=== PATIENT | male | born 1960 | race Caucasian/White ===

== ENCOUNTER 2018-11-06 21:18 | Inpatient (IN) ==
[2018-11-06] MEDS ORDERED: IOPAMIDOL 100 ML BOTTLE IV ONE (21:19)
[2018-11-06] MEDS ORDERED: 0.9 % SODIUM CHLORIDE 2,000 ML IV ONE (21:50)
[2018-11-06] MEDS ORDERED: ONDANSETRON 4 MG/2 ML VIAL IV ONE (21:50)
[2018-11-06] MEDS ORDERED: HYDROmorphone 2 MG/ML VIAL IV PRN (21:50)
[2018-11-06] MEDS ORDERED: PANTOPRAZOLE 40 MG VIAL IV ONE (21:53)
[2018-11-06] MEDS ORDERED: PIPERACILLIN SODIUM/TAZOBACTAM 3.375 GM in DEXTROSE 5% IN WATER 50 ML IV SCH (22:00)
[2018-11-06] MEDS ORDERED: PANTOPRAZOLE 80 MG in 0.9 % SODIUM CHLORIDE 100 ML IV SCH (22:00)
[2018-11-06 23:09] LABS: Mean Cell Volume 72.9 fL (80.0-100.0); Mean Corpuscular HGB Conc 31.4 g/dL (31.0-36.0); Platelet Count 442 K/mcL (140-440); Red Cell Distribution Width 17.3 % (11.5-14.5)
[2018-11-06 23:29] LABS: ALT/SGPT 13 U/l (0-40); Albumin 3.8 gm/dL (3.2-5.2); Albumin/Globulin Ratio 1.3 (1.0-2.3); Alkaline Phosphatase 90 U/L (39-117); Amylase 94 U/L (28-100); Blood Urea Nitrogen 42 mg/dl (6-20); Lipase 33 U/L (7-60)
[2018-11-06 23:48] LABS: Anisocytosis 1+ (NONE SEEN); Hypochromasia 1+ (NONE SEEN); Lymphocytes % 6 % (15-49); Monocytes % (Manual) 6 % (1-12); Platelet Estimate INCREASED (NORMAL); RBC Morphology ABNORM (NORMAL); Segmented Neutrophils % 88 % (38-78)
--- NOTE | 2018-11-06 23:53 | Emergency Department Note ---
Dizziness HPI - General Chief Complaint: Dizziness Stated Complaint: dizziness and falls x 2 today Time Seen by Provider: 11/06/18 21:38 Source: patient, family Mode of arrival: wheelchair Limitations: no limitations - History of Present Illness HPI Narrative: 58-year-old male comes in for nausea vomiting and epigastric stomach pain. Has not been able to eat for 2 or 3 days now. He notes pain after eating with nausea and vomiting so he has limited his eating. Has been seen at [facility] for this problem before without significant resolution. He is also been to [place] and had upper endoscopy for which he said they have seen a mass. Currently not having trouble breathing nor fever. Somnolent. His is complaining he is sleeping all the time - Related Data Allergies Allergy/AdvReac Type Severity Reaction Status Date / Time No Known Drug Allergies Allergy Unverified 11/07/18 00:18 Review of Systems All systems ED: reviewed and negative except as stated. Past Medical History - Past Medical History Attestation: Yes: The following information was validated with the patient. Medical history: Reports: no medical history Surgical history ED: Reports: appendectomy, other (Ear surgery) - Social History smoking status: Former smoker (Recently quit) Alcohol use: Reports: None Physical Exam Cachectic male, somnolent. Normocephalic atraumatic. Conjunctive are clear sclerae nonicteric. No nasal discharge or congestion. Oropharynx is pink and moist. Poor dentition with multiple missing teeth. Neck is supple without lymphadenopathy thyromegaly. Heart is mildly tachycardic without murmur appreciated. Lungs are clear to auscultation bilaterally without wheezes rales rhonchi's or respiratory distress. Epigastric tenderness noted but otherwise flat stomach without distention guarding rebound or rigidity. No pedal edema. +2 radial pulse. He was much more alert after getting IV fluids Dilaudid Zofran and Protonix drip. He reports his pain significantly improved Limitations: no limitations Course Vital Signs Temperature 98.0 F 11/06/18 21:20 Pulse Rate 132 H 11/06/18 21:20 Respiratory Rate 16 11/06/18 21:20 Blood Pressure 71/55 11/06/18 21:20 Pulse Oximetry (%) 100 11/06/18 21:20 Temperature 98.0 F 11/06/18 21:20 Pulse Rate 132 H 11/06/18 21:20 Respiratory Rate 15 11/07/18 00:01 Blood Pressure 91/63 11/07/18 00:01 Pulse Oximetry (%) 100 11/06/18 21:46 Dizziness - Lab Data Lab results reviewed: Yes I reviewed the patient's lab results. Result diagrams: 11/06/18 22:15 11/06/18 22:15 Lab Results 11/06/18 11/06/18 11/06/18 Range/Units 22:15 22:15 22:15 WBC 15.9 H (4.5-11.0) K/mcL RBC 4.40 L (4.50-5.90) M/mcL Hgb 10.1 L (13.5-16.5) g/dL Hct 32.1 L (41.0-55.0) % POC Hct 33.0 L (41.0-55.0) % MCV 72.9 L (80.0-100.0) fL MCH 22.9 L (26.0-34.0) pg MCHC 31.4 (31.0-36.0) g/dL RDW 17.3 H (11.5-14.5) % Plt Count 442 H (140-440) K/mcL MPV 7.6 (7.4-10.4) fL Total Counted 100 Seg Neutrophils % 88 H (38-78) % Band Neutrophils % Not Reportable Lymphocytes % 6 L (15-49) % Monocytes % (Manual) 6 (1-12) % Platelet Estimate Increased A (NORMAL) RBC Morphology Abnorm A (NORMAL) Polychromasia 1+ A (NONE SEEN) Hypochromasia 1+ A (NONE SEEN) Anisocytosis 1+ A (NONE SEEN) Microcytosis 2+ A (NONE SEEN) PT 13.5 (11.9-14.5) sec INR 1.0 (0.9-1.1) VBG Lactic Acid (0.5-2.0) mmol/L POC Sodium 141 (133-145) mmol/L Sodium 143 (133-145) mmol/L POC Potassium 3.7 (3.3-5.1) mmol/L Potassium 4.0 (3.3-5.1) mmol/L POC Chloride 97 (96-108) mmol/L Chloride 99 (96-108) mmol/L Carbon Dioxide 28 (22-30) mmol/L POC Total CO2 27 (22-30) mmol/L Anion Gap 16.0 (8-16) POC BUN 39 H (6-20) mg/dl BUN 42 H (6-20) mg/dl Creatinine 1.3 H (0.7-1.2) mg/dl POC Creatinine 1.4 H (0.7-1.2) mg/dl GFR Calculation 60 Glucose 142 H (70-105) mg/dL POC Glucose 138 H (70-105) mg/dL Calcium 8.5 L (8.6-10.4) mg/dl POC WB Ioniz Calcium 1.03 L (1.16-1.32) mmol/L Total Bilirubin < 0.2 (0.0-1.0) mg/dL AST 15 (0-37) U/l ALT 13 (0-40) U/l Alkaline Phosphatase 90 (39-117) U/L Total Protein 6.8 (5.9-8.4) gm/dL Albumin 3.8 (3.2-5.2) gm/dL Globulin 3.0 (2.2-3.7) gm/dL Albumin/Globulin Ratio 1.3 (1.0-2.3) Amylase 94 (28-100) U/L Lipase 33 (7-60) U/L 11/06/18 Range/Units 22:15 WBC (4.5-11.0) K/mcL RBC (4.50-5.90) M/mcL Hgb (13.5-16.5) g/dL Hct (41.0-55.0) % POC Hct (41.0-55.0) % MCV (80.0-100.0) fL MCH (26.0-34.0) pg MCHC (31.0-36.0) g/dL RDW (11.5-14.5) % Plt Count (140-440) K/mcL MPV (7.4-10.4) fL Total Counted Seg Neutrophils % (38-78) % Band Neutrophils % Lymphocytes % (15-49) % Monocytes % (Manual) (1-12) % Platelet Estimate (NORMAL) RBC Morphology (NORMAL) Polychromasia (NONE SEEN) Hypochromasia (NONE SEEN) Anisocytosis (NONE SEEN) Microcytosis (NONE SEEN) PT (11.9-14.5) sec INR (0.9-1.1) VBG Lactic Acid 4.1 H* (0.5-2.0) mmol/L POC Sodium (133-145) mmol/L Sodium (133-145) mmol/L POC Potassium (3.3-5.1) mmol/L Potassium (3.3-5.1) mmol/L POC Chloride (96-108) mmol/L Chloride (96-108) mmol/L Carbon Dioxide (22-30) mmol/L POC Total CO2 (22-30) mmol/L Anion Gap (8-16) POC BUN (6-20) mg/dl BUN (6-20) mg/dl Creatinine (0.7-1.2) mg/dl POC Creatinine (0.7-1.2) mg/dl GFR Calculation Glucose (70-105) mg/dL POC Glucose (70-105) mg/dL Calcium (8.6-10.4) mg/dl POC WB Ioniz Calcium (1.16-1.32) mmol/L Total Bilirubin (0.0-1.0) mg/dL AST (0-37) U/l ALT (0-40) U/l Alkaline Phosphatase (39-117) U/L Total Protein (5.9-8.4) gm/dL Albumin (3.2-5.2) gm/dL Globulin (2.2-3.7) gm/dL Albumin/Globulin Ratio (1.0-2.3) Amylase (28-100) U/L Lipase (7-60) U/L Urinalysis [id number] dipstick is negative - Radiology Data Radiology results reviewed: Yes I reviewed the patient's radiology results. CT scan of the abdomen pelvis shows thickening of the antrum of the stomach consistent with gastritis; endoscopy is recommended. No free air is noted. I discussed this with the [facility] radiologist - EKG Data EKG attestation: Yes I reviewed and interpreted this EKG. EKG results narrative: EKG shows a rate of 124 right atrial abnormality otherwise normal sinus rhythm, sinus tachycardia Disposition Pt seen by PRINT BINDING WORKER/PA only: No Clinical Impression: Gastritis and gastroduodenitis Summary: After initial evaluation work-up ordered with CT scan and laboratory. Concern for ulcer/gastritis versus pancreatitis versus ischemic bowel. Treatment started with Dilaudid Zofran IV fluids and Protonix. Blood cultures were done and Zosyn started as he is mildly hypotensive and somnolent-concern for possible sepsis Significant laboratory abnormalities noted-concerning leukocytosis and lactic acidosis. Blood pressure stabilized with IV fluids. He was feeling much better with above-noted treatment. CT scan showed possible gastritis versus ulcer but no free air. He did have an episode of nausea and vomiting when he first came in this was sent off for Gastroccult-dark brownish-black stomach fluid. I discussed these findings with Dr. Colmenares, GI doctor transportation maintenance supervisor and Dr. Daugherty, hospitalist. Dr. Daugherty agreed to accept patient for further care and evaluation. Disposition: Xfer As Inpt ([facility]) Condition: Serious
--- NOTE | 2018-11-07 00:41 | Internal Med History&Physical ---
Medical - H&P: HPI Patient information: Note initiated : 11/07/18 at 12:38 am Service Date, if different from initiated Date: [] Patient: Tony Olea 58 y/o M admitted on for dizziness and falls x 2 today. Chief Complaint: [] History of present illness: Mr. Olea is a 58 year old M with history of some stomach issues presents to the hospital today for evaluation of weakness, few episodes of falls, nausea vomit ing and bright red blood according to the patient in vomitus. The patient does not like to be in the hospital or believe much in doctors however his family forced him to come to the hospital. the patient notes his symptoms have been going on for the last 4 days, he has not been able to eat or drink much since then. He notes vomitus is bright red in color, last episode 2 hours ago. He denies any black stools, or bright red blood in stools. The patient admits to having some fever chills occasional night sweats and some weight loss. He denies any history of alcohol use or tobacco use, does admit to marijuana use. He does not follow-up with regular provider however on chart review it seems he has had this issue with some nausea and vomiting abdominal pain in the past, he is also had hematemesis in [facility]. Last year he had an upper endoscopy done at [facility] where and he reported that they found a mass in his stomach and they wanted to operate or remove this mass, he said it was a mobile mass, but he did not follow-up on this In the emergency room on presentation patient was tachycardic, hypertensive but afebrile saturating more than 90% on room air. Labs show hemoglobin of 10, WBC count of 15, platelets of 442, MCV 72. Chemistry shows mild renal dysfunction, lactic acid is 4.1, CT abdomen and pelvis shows gastritis thickened gastric wall, [id number] urinalysis is negative Patient is being admitted to the ICU for further management is on IV PPI GI has been consulted plan for endoscopy tomorrow morning All systems: reviewed and no additional remarkable complaints except as stated (As per HPI rest negative) Medical - H&P: PMH Medical history: Does not take any medication, denies any medical issues Surgical history: Appendectomy Pertinent family history: Mother had diabetes Father with colon cancer Social history: Marijuana user denies alcohol or tobacco use Medical - H&P: Meds Allergies Allergy/AdvReac Type Severity Reaction Status Date / Time No Known Drug Allergies Allergy Unverified 11/07/18 00:18 Medical - H&P: Exam - Constitutional Vitals: Temp Pulse Resp BP Pulse Ox 98.0 F 132 H 15 91/63 100 11/06/18 21:20 11/06/18 21:20 11/07/18 00:01 11/07/18 00:01 11/06/18 21:46 Exam: GENERAL: The patient is a well-developed, well-nourished in no apparent distress. Is alert and oriented x3. VITAL SIGNS: Reviewed and as noted elsewhere. HEENT: Head is normocephalic and atraumatic. Extraocular muscles are intact. Pupils are equal, round, and reactive to light. Nares appeared normal. Mouth appears any without lesions. Mucous membranes are moist. NECK: Normal to inspection, Supple, No lymphadenopathy or thyromegaly. LUNGS: Air entry equal on both sides, no wheezing, crackles or rhonchi noted. No accessory muscles of respiration HEART: Regular rate and rhythm normal, S1 and S2 heard, no Gallop, S3 or Rub Noted, No Gross murmur heard. ABDOMEN: Soft, epigastric tenderness noted, and nondistended. Positive bowel sounds. No hepatosplenomegaly was noted. EXTREMITIES: No cyanosis, clubbing, rash, lesions or edema. NEUROLOGIC: Cranial nerves II through XII are grossly intact. Motor and Sensory System Grossly Intact PSYCHIATRIC: Normal affect, Normal Mood. Appropriate Behavior. SKIN: No ulceration or wounds noted, No jaundice, No rash noted. Medical - H&P: Reslt - Labs CBC & Chem 7: 11/06/18 22:15 11/06/18 22:15 Labs: Short CBC 11/06/18 Range/Units 22:15 WBC 15.9 H (4.5-11.0) K/mcL Hgb 10.1 L (13.5-16.5) g/dL Hct 32.1 L (41.0-55.0) % Plt Count 442 H (140-440) K/mcL BMP 11/06/18 22:15 Sodium 143 Potassium 4.0 Chloride 99 Carbon Dioxide 28 BUN 42 H Creatinine 1.3 H Glucose 142 H Calcium 8.5 L Liver Function 11/06/18 Range/Units 22:15 Total Bilirubin < 0.2 (0.0-1.0) mg/dL AST 15 (0-37) U/l ALT 13 (0-40) U/l Alkaline Phosphatase 90 (39-117) U/L Albumin 3.8 (3.2-5.2) gm/dL Medical - H&P: A/P - Narrative A/P Narrative: A/P Upper GI bleed Gastric mass Leucocytosis Lactic acidosis acute renal failure Hypotension Anemia, Acute blood loss Iron deficiency Marijuan abuse Plan admit to ICU aggressive fluid resuscitation transfuse 2 units prbc banana bag check iron stores IV ppi to continue trend lactic acid and labs EGD in AM, stomach mass ? try to obtain records from previous EGD Leucocytosis etiology? no clear e/o infection, cultures sent, cover with pari for now DVT scd Full code NPO status.
[2018-11-07] MEDS ORDERED: LACTATED RINGERS 1,000 ML IV ONE ×2 (01:06)
[2018-11-07] MEDS ORDERED: NALOXONE HCL 0.4 MG/ML VIAL IV PRN (01:06)
[2018-11-07] MEDS ORDERED: ONDANSETRON 4 MG/2 ML VIAL IV PRN (01:06)
[2018-11-07] MEDS ORDERED: POTASSIUM CHLORIDE 20 MEQ, MAGNESIUM SULFATE 16.24 MEQ, THIAMINE 100 MG, MVI, ADULT NO.... IV SCH (01:06)
[2018-11-07] MEDS ORDERED: VANCOMYCIN 1,000 MG in 0.9 % SODIUM CHLORIDE 250 ML IV ONE (01:06)
[2018-11-07] MEDS ORDERED: VANCOMYCIN PER PHARMACY IV ONE (01:06)
[2018-11-07] MEDS ORDERED: 0.9 % SODIUM CHLORIDE 250 ML IV SCH (01:06)
[2018-11-07] MEDS ORDERED: HYDROmorphone 2 MG/ML VIAL IV PRN (01:06)
[2018-11-07 02:03] LABS: Amphetamine Screen,Urine SUSPECT POSITIVE (NONDETECTED); Benzodiazepines Screen,Urine NONE DETECTED (NONDETECTED); Cocaine Screen,Urine NONE DETECTED (NONDETECTED); Opiate Screen,Urine NONE DETECTED (NONDETECTED); Oxycodone, Urine Screen NONE DETECTED (NONDETECTED)
[2018-11-07 02:12] LABS: Iron 24 mcg/dl (61-157); Transferrin % Saturation 6 % (20-50); Unsaturated Iron Binding 346 mcg/dL (112-346)
[2018-11-07 02:23] LABS: Ferritin 10.7 ng/ml (30-400)
[2018-11-07 02:30] LABS: Vitamin B12 402.7 pg/ml (232-1245)
[2018-11-07] MEDS ORDERED: POTASSIUM CHLORIDE 20 MEQ/10 ML VIAL IV ONE (02:55)
[2018-11-07] MEDS ORDERED: MAGNESIUM SULFATE 8.12 MEQ/2 ML VIAL ONE (02:56)
[2018-11-07] MEDS ORDERED: HYDROmorphone 2 MG/ML VIAL ONE (03:41)
[2018-11-07] MEDS: PIPERACILLIN SODIUM/TAZOBACTAM 3.375 GM in DEXTROSE 5% IN WATER 50 ML IV SCH ×4 (05:41→17:11)
[2018-11-07] MEDS: 0.9 % SODIUM CHLORIDE 10 ML SYRINGE IV SCH ×3 (05:41→23:17)
[2018-11-07] MEDS: METOCLOPRAMIDE 10 MG/2 ML VIAL IV SCH ×3 (05:43→17:11)
[2018-11-07] MEDS ORDERED: METOCLOPRAMIDE 10 MG/2 ML VIAL ONE (05:45)
--- NOTE | 2018-11-07 05:53 | Cat Scan Report ---
CLINICAL INFORMATION: Severe abdominal pain COMPARISON: None. TECHNIQUE: Axial images were obtained through the abdomen and pelvis. Sagittally and coronally reformatted images. 80 mL contrast material injected intravenously. Oral contrast material was not administered FINDINGS: Lung bases are negative. No parenchymal infiltrate or mass. No pleural fluid. There is no pericardial fluid. Negative liver. No focal intrahepatic abnormality. Liver contour is smooth. Gallbladder is present. No calcified gallstones. No dilated bile ducts. Spleen is negative. No splenomegaly. Normal enhancement of the splenic and portal veins. Negative pancreas. No pancreatic mass. No peripancreatic abnormality. Negative adrenal glands. Kidneys are negative. No solid or cystic renal mass. No hydronephrosis. There is no hydroureter. Urinary bladder is not distended. There is no bladder calculus. Colon is negative. No detectable mass. There is no diverticulitis. The appendix is not well-visualized. No CT evidence for appendicitis. Mechanical small bowel obstruction. No dilated small bowel. There are prostatic calcifications. There is no inguinal hernia. There are oval shaped soft tissue densities within the inguinal canal bilaterally. Findings are consistent with testicles in the canal. There is minimal atherosclerotic calcification in the infrarenal abdominal aorta. No abdominal aortic aneurysm There is no pneumoperitoneum. No biliary or portal venous gas. No pneumatosis. There is no intra-abdominal abscess. Lumbar spine is negative. No compression deformities. There is mild degenerative disc disease at L5-S1. Sacrum and pelvis are negative. Examination was initially interpreted by [facility] IMPRESSION: 1. Oval shaped soft tissue densities in the inguinal canal bilaterally. Appearance is consistent with undescended or retracted testicles 2. Nonvisualization of the appendix. No CT evidence for appendicitis The exam was performed using radiation dose optimization techniques including, but not limited to, automated exposure control, adjustment of the mA and/or kV according to patient size and use of iterative reconstruction technique. Interpreted and Authenticated by: Marshall Oneil 11/07/18
[2018-11-07] MEDS ORDERED: VANCOMYCIN PER PHARMACY IV SCH (06:15)
--- NOTE | 2018-11-07 08:18 | XRay Report ---
INDICATION: Dizziness. Episodes of falling TECHNIQUE: AP chest x-ray,portable semiupright COMPARISON: None FINDINGS:Biapical pleural thickening. There is interstitial abnormality in both lungs which may represent chronic scarring. COPD is possible. No pulmonary parenchymal consolidation. No discrete mass. Heart size and vascularity are normal. Dilma and mediastinum are negative. There is no evidence for pleural fluid IMPRESSION: 1. Possible COPD. Clinical correlation recommended 2. Interstitial abnormality bilaterally. This may represent chronic scarring. There is biapical pleural thickening. 3. No focal parenchymal consolidation. No discrete mass Interpreted and Authenticated by: Marshall Oneil 11/07/18
[2018-11-07] MEDS ORDERED: VANCOMYCIN 500 MG in 0.9 % SODIUM CHLORIDE 100 ML IV SCH (09:00)
[2018-11-07 09:01] LABS: Basophils # (Auto) 0 K/mcL (0.0-0.3); Basophils % (Auto) 0.3 % (0.0-2.0); Eosinophils # (Auto) 0.1 K/mcL (0.0-0.7); Eosinophils % (Auto) 0.9 % (0.0-7.0); Granulocytes % (Auto) 69.2 % (38.0-78.0); Lymphocytes # (Auto) 2.3 K/mcL (1.5-4.8); Lymphocytes % (Auto) 19.5 % (15.5-49.0); Mean Cell Volume 77.1 fL (80.0-100.0); Mean Corpuscular HGB Conc 31.9 g/dL (31.0-36.0); Monocytes # (Auto) 1.2 K/mcL (0.1-0.9); Monocytes % (Auto) 10.1 % (1.0-12.0); Platelet Count 292 K/mcL (140-440); RBC 4.33 M/mcL (4.50-5.90); Red Cell Distribution Width 20.1 % (11.5-14.5)
[2018-11-07] MEDS: PANTOPRAZOLE 80 MG in 0.9 % SODIUM CHLORIDE 100 ML IV SCH ×2 (09:23→21:12)
[2018-11-07 09:55] LABS: Appearance,Urine CLEAR; Bacteria,Urine 0 /hpf (0); Bilirubin,Urine NEG (NEG); Color,Urine YELLOW; Glucose,Urine (UA) NEGATIVE (NEG); Leukocyte Esterase,Urine NEG /uL (NEG); Protein,Urine NEG (NEG); Specific Gravity,Urine 1.024 (1.000-1.035); Urine Blood NEG mg/dL (<0.03); Urine RBC 1 /hpf (0-1); Urine Squamous Epithelial Cell 0 /hpf (0-4); Urine WBC 1 /hpf (0-4); Urobilinogen,Urine NEG (NEG)
--- NOTE | 2018-11-07 10:47 | Internal Med Progress Note ---
Medical - PN: Subj Patient information: Note initiated : 11/07/18 at 10:45 am Service Date, if different from initiated Date: [] Patient: Tony Olea 58 y/o M admitted on 11/07/18 for dizziness and falls x 2 today. Chief Complaint: [] Interval history: Mr. Olea is a 58 year old M with history of some stomach issues presents to the hospital today for evaluation of weakness, few episodes of falls, nausea vomiting and bright red blood according to the patient in vomitus. The patient does not like to be in the hospital or believe much in doctors however his family forced him to come to the hospital. the patient notes his symptoms have been going on for the last 4 days, he has not been able to eat or drink much since then. He notes vomitus is bright red in color, last episode 2 hours ago. He denies any black stools, or bright red blood in stools. The patient admits to having some fever chills occasional night sweats and some weight loss. He denies any history of alcohol use or tobacco use, does admit to marijuana use. He does not follow-up with regular provider however on chart review it seems he has had this issue with some nausea and vomiting abdominal pain in the past, he is also had hematemesis in [facility]. Last year he had an upper endoscopy done at [facility] where and he reported that they found a mass in his stomach and they wanted to operate or remove this mass, he said it was a mobile mass, but he did not follow-up on this In the emergency room on presentation patient was tachycardic, hypertensive but afebrile saturating more than 90% on room air. Labs show hemoglobin of 10, WBC count of 15, platelets of 442, MCV 72. Chemistry shows mild renal dysfunction, lactic acid is 4.1, CT abdomen and pelvis shows gastritis thickened gastric wall, [id number] urinalysis is negative Patient is being admitted to the ICU for further management is on IV PPI GI has been consulted plan for endoscopy tomorrow morning 11/07 Patient seen examined, patient has no new complaints or concerns today, abdominal pain resolved no vomiting. H/H stable, but has received 2 units of blood, Remains hemodynamically stable GI consult and EGD pending. Pertinent ROS: Denies headache, dizziness Denies chest pain, palpitations Denies cough or shortness of breath Denies abdominal pain, nausea or vomiting. - Constitutional Vitals: Vital Signs Temp Pulse Resp BP Pulse Ox 98.5 F 84 14 124/100 100 11/07/18 09:01 11/07/18 08:01 11/07/18 09:04 11/07/18 09:01 11/07/18 09:01 Period Temp Pulse Resp BP Sys/Bronson Pulse Ox Last 24 Hr 98.0 F-100.0 F 79-132 11-24 71-127/55-100 98-100 Intake and Output 11/06/18 11/07/18 11/07/18 21:59 05:59 13:59 Intake Total 4625 400 Output Total 400 Balance 4625 0 Weight 110 lb 105 lb 6.4 oz Intake & Output: Intake & Output 11/06/18 11/07/18 11/07/18 21:59 05:59 13:59 Intake Total 4625 400 Output Total 400 Balance 4625 0 Weight 110 lb 105 lb 6.4 oz Intake: IV 4300 50 Lactated Ringers 1,000 ml @ 2000 Wide Open IV BOLUS ONE Rx#: [id number] Zosyn 3.375 gm In Dextrose 5% 50 50 in Water 50 ml @ 100 mls/hr IV Q6H AKANKSHA Rx#:[id number] Vancomycin 1,000 mg In Sodium 250 Chloride 0.9% 250 ml @ 250 mls/ hr IV ONCE ONE Rx#:[id number] Blood Product 325 350 Output: Void Amount 400 Other: Urine Appearance Clear Urine Color Straw Urine Odor Normal Exam: Constitutional; Afebrile, cooperative, alert, not in distress. Eyes- No icterus, , No periorbital swelling Ears- Ext ear normal, hearing normal to conversation. Neck- Midline trachea, supple Respiratory system: Air Entry equal on both sides, No crackles or wheezing, no rhonchi. CVS- Rate rhythm regular, S1,S2 heard, no gallop, no rub. Abdomen- Soft nontender abdomen, no organomegaly, no tenderness, no guarding or rigidity, WATCH SUPERVISOR- AOOx3, moving all extremities, no gross focal deficit noted. Medical - PN: Obj Da - Labs CBC & Chem 7: 11/07/18 07:58 11/06/18 22:15 Labs: Abnormal Lab Results 11/07/18 11/07/18 11/06/18 07:58 00:55 22:15 WBC 11.9 H RBC 4.33 L Hgb 10.6 L Hct 33.4 L POC Hct MCV 77.1 L MCH 24.5 L RDW 20.1 H Plt Count Gran # 8.2 H [place] # (Auto) 1.2 H Seg Neutrophils % Lymphocytes % Platelet Estimate RBC Morphology Polychromasia Hypochromasia Anisocytosis Microcytosis VBG Lactic Acid 4.1 H* POC BUN BUN Creatinine POC Creatinine Glucose POC Glucose Calcium POC WB Ioniz Calcium Iron 24 L Transferrin % Sat 6 L Ferritin 10.7 L Ur Amphetamines Screen U Marijuana (THC) Screen 11/06/18 11/06/18 11/06/18 22:15 22:15 01:00 WBC 15.9 H RBC 4.40 L Hgb 10.1 L Hct 32.1 L POC Hct 33.0 L MCV 72.9 L MCH 22.9 L RDW 17.3 H Plt Count 442 H Gran # [place] # (Auto) Seg Neutrophils % 88 H Lymphocytes % 6 L Platelet Estimate Increased A RBC Morphology Abnorm A Polychromasia 1+ A Hypochromasia 1+ A Anisocytosis 1+ A Microcytosis 2+ A VBG Lactic Acid POC BUN 39 H BUN 42 H Creatinine 1.3 H POC Creatinine 1.4 H Glucose 142 H POC Glucose 138 H Calcium 8.5 L POC WB Ioniz Calcium 1.03 L Iron Transferrin % Sat Ferritin Ur Amphetamines Screen Suspect positive A U Marijuana (THC) Screen Suspect positive A Meds: Medications Hydromorphone HCl (Dilaudid) 0.5 mg IV Q2HP PRN PRN Reason: PAIN LEVEL > 6 Last Admin: 11/07/18 03:54 Dose: 0.5 mg Documented by: Pantoprazole Sodium 80 mg/ (Sodium Chloride) 100 mls @ 10 mls/hr IV Q10H [facility] Last Admin: 11/07/18 09:23 Dose: 8 mg/hr, 10 mls/hr Documented by: Piperacillin Sod/Tazobactam (Sod 3.375 gm/ Dextrose) 50 mls @ 100 mls/hr IV Q6H [facility]; Protocol Last Admin: 11/07/18 08:37 Dose: Not Given Documented by: Sodium Chloride (Sodium Chloride 0.9%) 250 mls @ 20 mls/hr IV .[id number] [facility] Stop: 11/07/18 13:35 Last Admin: 11/07/18 03:56 Dose: 20 mls/hr Documented by: Vancomycin HCl 1,000 mg/ (Sodium Chloride) 250 mls @ 250 mls/hr IV Q24H [facility] Metoclopramide HCl (Reglan) 5 mg IV Q6 [facility] Last Admin: 11/07/18 05:43 Dose: 5 mg Documented by: Naloxone HCl (Narcan) 0.1 mg IV Q2MIN PRN PRN Reason: Opiate Reversal Ondansetron HCl (Zofran) 4 mg IV Q4-6HP PRN PRN Reason: Nausea And Vomiting Sodium Chloride (Saline Flush) 10 ml IV Q8 [facility] Last Admin: 11/07/18 05:41 Dose: Not Given Documented by: Vancomycin HCl (Vancomycin Per Pharmacy) 1 order IV UD [facility]; Protocol Medical - PN: A/P - Time Spent With Patient Total time spent is greater than 50% in coordination of care (as documented) at patient's floor/unit and/or counseling patient: - Narrative A/P Narrative: A/P Upper GI bleed Gastric mass Leucocytosis Lactic acidosis acute renal failure, repeat creat pending Hypotension-resolved Anemia, Acute blood loss Iron deficiency Marijuan abuse Plan monitor in [facility] s/ p aggressive fluid resuscitation s/p transfuse 2 units prbc, hb stable lactic acidosis resolved banana bag low iron, ferritin level IV ppi to continue EGD pending Leucocytosis etiology? no clear e/o infection, cultures sent, cover with vanco and zosyn for now, wbc trending down stress related? DVT scd Full code NPO status. Medical - PN: Qual - Stroke Symptom Onset Unknown: No - VTE Deep Vein Thrombosis/Pulmonary Embolism Present on Admission: No
[2018-11-07 11:01] LABS: ALT/SGPT 12 U/l (0-40); Albumin/Globulin Ratio 1.2 (1.0-2.3); Alkaline Phosphatase 67 U/L (39-117); Bilirubin,Direct < 0.2 mg/dL (0.0-0.3); Blood Urea Nitrogen 23 mg/dl (6-20); Gamma Glutamyl Transpeptidase 6 U/L (8-61); Uric Acid 2.5 mg/dL (2.5-8.0)
[2018-11-07] MEDS ORDERED: KETAMINE HCL 50 MG/ML ML IV PRN (15:03)
[2018-11-07] MEDS ORDERED: PROPOFOL 200 MG/20 ML VIAL IV SCH (15:15)
[2018-11-07] MEDS ORDERED: MIDAZOLAM 2 MG/2 ML VIAL IV SCH (15:15)
[2018-11-07] MEDS: MIDAZOLAM 2 MG/2 ML VIAL ONE ×2 (15:41→17:26)
[2018-11-07] MEDS: PROPOFOL 20 ML IV ONE ×2 (15:41→17:26)
[2018-11-07] MEDS: DEXTROSE 5%-1/2NS W/20MEQ KCL 1,000 ML IV SCH (21:12)
[2018-11-08] MEDS: METOCLOPRAMIDE 10 MG/2 ML VIAL IV SCH ×5 (00:04→23:53)
[2018-11-08] MEDS: PIPERACILLIN SODIUM/TAZOBACTAM 3.375 GM in DEXTROSE 5% IN WATER 50 ML IV SCH ×2 (00:04→05:37)
[2018-11-08] MEDS: 0.9 % SODIUM CHLORIDE 10 ML SYRINGE IV SCH ×3 (05:38→20:29)
[2018-11-08 06:29] LABS: Basophils # (Auto) 0 K/mcL (0.0-0.3); Basophils % (Auto) 0.3 % (0.0-2.0); Eosinophils # (Auto) 0.3 K/mcL (0.0-0.7); Eosinophils % (Auto) 3.6 % (0.0-7.0); Granulocytes % (Auto) 64.5 % (38.0-78.0); Lymphocytes % (Auto) 21.4 % (15.5-49.0); Mean Cell Volume 77.4 fL (80.0-100.0); Mean Corpuscular HGB Conc 31.7 g/dL (31.0-36.0); Monocytes # (Auto) 0.9 K/mcL (0.1-0.9); Monocytes % (Auto) 10.2 % (1.0-12.0); Platelet Count 281 K/mcL (140-440); RBC 4.01 M/mcL (4.50-5.90); Red Cell Distribution Width 18.6 % (11.5-14.5)
[2018-11-08 06:50] LABS: ALT/SGPT 12 U/l (0-40); Albumin 3.1 gm/dL (3.2-5.2); Albumin/Globulin Ratio 1.3 (1.0-2.3); Alkaline Phosphatase 61 U/L (39-117); Bilirubin,Direct < 0.2 mg/dL (0.0-0.3); Blood Urea Nitrogen 19 mg/dl (6-20); Gamma Glutamyl Transpeptidase 6 U/L (8-61); Uric Acid 1.5 mg/dL (2.5-8.0)
[2018-11-08] MEDS: PANTOPRAZOLE 80 MG in 0.9 % SODIUM CHLORIDE 100 ML IV SCH (07:00)
[2018-11-08] MEDS ORDERED: POTASSIUM PHOSPHATE 40 MEQ in DEXTROSE 5% IN WATER 500 ML IV ONE (07:33)
[2018-11-08] MEDS ORDERED: VANCOMYCIN 1,000 MG in 0.9 % SODIUM CHLORIDE 250 ML IV SCH (09:00)
[2018-11-08] MEDS ORDERED: THIAMINE 100 MG in 0.9 % SODIUM CHLORIDE 50 ML IV SCH (09:00)
--- NOTE | 2018-11-08 09:06 | EGD Procedure Note ---
EGD Procedure Notes - Procedure Information Patient information: Note initiated : 11/08/18 at 9:03 am Service Date: 11/07/18 Patient: Tony Olea 58 y/o M admitted on 11/07/18 for dizziness and falls x 2 today. Pre-op diagnosis general: GI bleed. 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 Procedure: Esophogogastroduodenoscopy Procedure Narrative: The procedure, alternatives and risks were discussed with the patient and the patient's questions were answered. With endoscopist-administered intravenous sedation, the Olympus video endoscope was introduced into the esophagus. The esophagus, stomach, and duodenum were examined sequentially. There is no esophagitis nor hiatal hernia. A mass with ulceration was seen in the duodenal bulb. It was bleeding with a visible vessel. It was not bleeding at present. This was biopsied. The mass was causing obstruction. This may be peptic but a tumor is more likely. The gastric mucosa, antrum, pyloric ring and duod enum were otherwise normal. Antral biopsy was taken for LIZZIE test. Small bowel biopsies obtained to check for malabsorption. The scope was withdrawn. 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 Reviewed the case with surgeon Dr. Som Babcock for consideration of antrectomy with Bilroth I.
--- NOTE | 2018-11-08 09:38 | Internal Med Progress Note ---
Medical - PN: Subj Patient information: Note initiated : 11/08/18 at 9:33 am Service Date, if different from initiated Date: [] Patient: Tony Olea 58 y/o M admitted on 11/07/18 for dizziness and falls x 2 today. Chief Complaint: [] Interval history: Mr. Olea is a 58 year old M with history of some stomach issues presents to the hospital today for evaluation of weakness, few episodes of falls, nausea vomiting and bright red blood according to the patient in vomitus. The patient does not like to be in the hospital or believe much in doctors however his family forced him to come to the hospital. the patient notes his symptoms have been going on for the last 4 days, he has not been able to eat or drink much since then. He notes vomitus is bright red in color, last episode 2 hours ago. He denies any black stools, or bright red blood in stools. The patient admits to having some fever chills occasional night sweats and some weight loss. He denies any history of alcohol use or tobacco use, does admit to marijuana use. He does not follow-up with regular provider however on chart review it seems he has had this issue with some nausea and vomiting abdominal pain in the past, he is also had hematemesis in [facility]. Last year he had an upper endoscopy done at [facility] where and he reported that they found a mass in his stomach and they wanted to operate or remove this mass, he said it was a mobile mass, but he did not follow-up on this In the emergency room on presentation patient was tachycardic, hypertensive but afebrile saturating more than 90% on room air. Labs show hemoglobin of 10, WBC count of 15, platelets of 442, MCV 72. Chemistry shows mild renal dysfunction, lactic acid is 4.1, CT abdomen and pelvis shows gastritis thickened gastric wall, [id number] urinalysis is negative Patient is being admitted to the ICU for further management is on IV PPI GI has been consulted plan for endoscopy tomorrow morning 11/07 Patient seen examined, patient has no new complaints or concerns today, abdominal pain resolved no vomiting. H/H stable, but has received 2 units of blood, Remains hemodynamically stable GI consult and EGD pending. 11/08 Patient seen and examined, no acute overnight issues, s/p EGD noted to have duodenal mass, with possible gastric obstruction. Dr Babcock has been consulted. He is following the patient Pt was sleeping comfortably this AM no hematemeisis or cathy reported Pt remains on PPI drip, h/h is now stable, will switch to IV PPI bid xfer to tele status. Pertinent ROS: Denies headache, dizziness Denies chest pain, palpitations Denies cough or shortness of breath Denies abdominal pain, nausea or vomiting. - Constitutional Vitals: Vital Signs Temp Pulse Resp BP Pulse Ox 99.1 F H 72 13 123/98 100 11/08/18 04:01 11/07/18 16:07 11/08/18 08:02 11/08/18 08:00 11/08/18 08:02 Period Temp Pulse Resp BP Sys/Bronson Pulse Ox Last 24 Hr 98.6 F-100.8 F 72-87 12-30 92-139/60-98 95-100 Intake and Output 11/07/18 11/08/18 11/08/18 21:59 05:59 13:59 Intake Total 150 130 98 Output Total 650 625 501 Balance -500 -495 -403 Weight 107 lb 1.6 oz Intake & Output: Intake & Output 11/07/18 11/08/18 11/08/18 21:59 05:59 13:59 Intake Total 150 130 98 Output Total 650 625 501 Balance -500 -495 -403 Weight 107 lb 1.6 oz Intake: IV 150 50 98 Protonix 80 mg In Sodium 100 98 Chloride 0.9% 100 ml @ 8 MG/HR 10 mls/hr IV Q10H AKANKSHA Rx#: [id number] Zosyn 3.375 gm In Dextrose 5% 50 50 in Water 50 ml @ 100 mls/hr IV Q6H AKANKSHA Rx#:[id number] Oral 0 Other 80 Output: Void Amount 650 625 500 # of times incontinent of urine 1 Other: Urine Appearance Clear Urine Color Straw Pale Urine Odor Normal Normal Exam: Constitutional; Afebrile, cooperative, alert, not in distress. Eyes- No icterus, , No periorbital swelling Ears- Ext ear normal, hearing normal to conversation. Neck- Midline trachea, supple Respiratory system: Air Entry equal on both sides, No crackles or wheezing, no rhonchi. CVS- Rate rhythm regular, S1,S2 heard, no gallop, no rub. Abdomen- Soft nontender abdomen, no organomegaly, no tenderness, no guarding or rigidity, [employer]- AOOx3, moving all extremities, no gross focal deficit noted. Medical - PN: Obj Da - Labs CBC & Chem 7: 11/08/18 04:30 11/08/18 04:30 Labs: Abnormal Lab Results 11/08/18 11/08/18 11/07/18 04:30 04:30 09:58 WBC RBC 4.01 L Hgb 9.8 L Hct 31.0 L POC Hct MCV 77.4 L MCH 24.5 L RDW 18.6 H Plt Count Gran # [place] # (Auto) Seg Neutrophils % Lymphocytes % Platelet Estimate RBC Morphology Polychromasia Hypochromasia Anisocytosis Microcytosis VBG Lactic Acid POC BUN BUN 23 H Creatinine POC Creatinine Glucose POC Glucose Uric Acid 1.5 L Calcium 7.4 L 7.6 L POC WB Ioniz Calcium Phosphorus 2.0 L Iron Transferrin % Sat Ferritin Total Bilirubin 1.3 H GGT 6 L 6 L Lactate Dehydrogenase 254 H 275 H Total Protein 5.5 L 5.5 L Albumin 3.1 L 3.0 L Ur Amphetamines Screen U Marijuana (THC) Screen 11/07/18 11/07/18 11/06/18 07:58 00:55 22:15 WBC 11.9 H RBC 4.33 L Hgb 10.6 L Hct 33.4 L POC Hct MCV 77.1 L MCH 24.5 L RDW 20.1 H Plt Count Gran # 8.2 H Andrews # (Auto) 1.2 H Seg Neutrophils % Lymphocytes % Platelet Estimate RBC Morphology Polychromasia Hypochromasia Anisocytosis Microcytosis VBG Lactic Acid 4.1 H* POC BUN BUN Creatinine POC Creatinine Glucose POC Glucose Uric Acid Calcium POC WB Ioniz Calcium Phosphorus Iron 24 L Transferrin % Sat 6 L Ferritin 10.7 L Total Bilirubin GGT Lactate Dehydrogenase Total Protein Albumin Ur Amphetamines Screen U Marijuana (THC) Screen 11/06/18 11/06/18 11/06/18 22:15 22:15 01:00 WBC 15.9 H RBC 4.40 L Hgb 10.1 L Hct 32.1 L POC Hct 33.0 L MCV 72.9 L MCH 22.9 L RDW 17.3 H Plt Count 442 H Gran # Andrews # (Auto) Seg Neutrophils % 88 H Lymphocytes % 6 L Platelet Estimate Increased A RBC Morphology Abnorm A Polychromasia 1+ A Hypochromasia 1+ A Anisocytosis 1+ A Microcytosis 2+ A VBG Lactic Acid POC BUN 39 H BUN 42 H Creatinine 1.3 H POC Creatinine 1.4 H Glucose 142 H POC Glucose 138 H Uric Acid Calcium 8.5 L POC WB Ioniz Calcium 1.03 L Phosphorus Iron Transferrin % Sat Ferritin Total Bilirubin GGT Lactate Dehydrogenase Total Protein Albumin Ur Amphetamines Screen Suspect positive A U Marijuana (THC) Screen Suspect positive A Meds: Medications Hydromorphone HCl (Dilaudid) 0.5 mg IV Q2HP PRN PRN Reason: PAIN LEVEL > 6 Last Admin: 11/07/18 03:54 Dose: 0.5 mg Documented by: Pantoprazole Sodium 80 mg/ (Sodium Chloride) 100 mls @ 10 mls/hr IV Q10H [facility] Last Admin: 11/08/18 07:00 Dose: 8 mg/hr, 10 mls/hr Documented by: Vancomycin HCl 1,000 mg/ (Sodium Chloride) 250 mls @ 250 mls/hr IV Q24H [facility] Potassium Chloride/Dextrose/Sod Cl (Dextrose 5%-1/2ns W/20meq Kcl) 1,000 mls @ 75 mls/hr IV .[id number] [facility] Last Admin: 11/07/18 21:12 Dose: 75 mls/hr Documented by: Thiamine HCl 100 mg/ Sodium (Chloride) 51 mls @ 50 mls/hr IV DAILY [facility] Stop: 11/10/18 10:02 Last Admin: 11/08/18 08:36 Dose: 50 mls/hr Documented by: Potassium Phosphate 40 meq/ (Dextrose) 509.0909 mls @ 127.273 mls/hr IV ONCE ONE Stop: 11/08/18 11:32 Last Admin: 11/08/18 08:44 Dose: 127.273 mls/hr Documented by: Metoclopramide HCl (Reglan) 5 mg IV Q6 [facility] Last Admin: 11/08/18 05:37 Dose: 5 mg Documented by: Naloxone HCl (Narcan) 0.1 mg IV Q2MIN PRN PRN Reason: Opiate Reversal Ondansetron HCl (Zofran) 4 mg IV Q4-6HP PRN PRN Reason: Nausea And Vomiting Sodium Chloride (Saline Flush) 10 ml IV Q8 [facility] Last Admin: 11/08/18 05:38 Dose: 10 ml Documented by: Medical - PN: A/P - Time Spent With Patient Total time spent is greater than 50% in coordination of care (as documented) at patient's floor/unit and/or counseling patient: - Narrative A/P Narrative: A/P Upper GI bleed Duodenal mass Leucocytosis- resolved Lactic acidosis - resolved acute renal failure,- resolved Hypotension-resolved Anemia, Acute blood loss Iron deficiency Marijuan abuse Plan UGI due to duodenal bleed switch ppi drip to IV BID PPI Await further surgery recommendations on duodenal mass and gastric outlet obstruction. xfer to tele d/c antibiotics, no e/o acute infection. culture are negative. DVT scd Full code NPO status Medical - PN: Qual - Stroke Symptom Onset Unknown: No - VTE Deep Vein Thrombosis/Pulmonary Embolism Present on Admission: No
[2018-11-08] MEDS: DEXTROSE 5%-1/2NS W/20MEQ KCL 1,000 ML IV SCH ×2 (12:00→20:28)
[2018-11-08] MEDS ORDERED: AMOXICILLIN 250 MG CAPSULE PO SCH ×2 (13:32→21:00)
[2018-11-08] MEDS ORDERED: CLARITHROMYCIN 500 MG TABLET PO SCH (14:00)
--- NOTE | 2018-11-08 14:10 | General Surgery Progress Note ---
Subjective Patient reports: feels better, pain is less, tolerating liquids well, flatus, bowel movement, blood in stool, afebrile Narrative: Note initiated : 11/08/18 at 2:07 pm Service Date, if different from initiated Date: [] Patient: Tony Olea 58 y/o M admitted on 11/07/18 for dizziness and falls x 2 today. Chief Complaint: [patient is doing well. He states that he feels much better. He had a small dark bowel movement earlier today. Hemoglobin is stable. White blood count is 9.8. He denies abdominal pain. He has been able to take liquids without any nausea or discomfort.] Objective Temp Pulse Resp BP Pulse Ox 99.1 F H 72 20 112/76 100 11/08/18 04:01 11/07/18 16:07 11/08/18 11:54 11/08/18 11:00 11/08/18 11:00 - Additional Data Intake & Output - Last 24 hours: Intake & Output 11/06/18 11/07/18 11/08/18 11/09/18 05:59 05:59 05:59 05:59 Intake Total 4625 1955 183 Output Total 2125 1202 Balance 4625 -170 -1019 Weight 105 lb 6.4 oz 107 lb 1.6 oz - General physical appearance no distress, no pain, chronically ill - Eyes PERRL, normal ocular movement - ENT normal pinna, normal nares, normal mucosa, no hearing loss, no congestion - Neck no masses, no bruits, trachea midline, no lymphadenopathy, no venous distension - Respiratory normal expansion, normal respiratory effort, clear to auscultation - Cardiovascular Cardiovascular exam: Present: normal rate and rhythm, RRR, +S1, +S2. Absent: tachycardia - Abdomen non tender (abdomen is soft and nontender; active bowel sounds; no abdominal distention) - Integumentary no rash, no growths, no abnormal pigmentation - Neurologic normal coordination, normal sensation - Musculoskeletal normal gait, normal posture - Psychiatric oriented to time, oriented to person, oriented to place, speech is normal, memory intact - Labs 11/08/18 04:30 11/08/18 04:30 Diabetes panel 11/08/18 Range/Units 04:30 Sodium 140 (133-145) mmol/L Potassium 3.9 (3.3-5.1) mmol/L Chloride 106 (96-108) mmol/L Carbon Dioxide 24 (22-30) mmol/L BUN 19 (6-20) mg/dl Creatinine 0.8 (0.7-1.2) mg/dl Glucose 80 (70-105) mg/dL Calcium 7.4 L (8.6-10.4) mg/dl AST 19 (0-37) U/l ALT 12 (0-40) U/l Alkaline Phosphatase 61 (39-117) U/L Total Protein 5.5 L (5.9-8.4) gm/dL Albumin 3.1 L (3.2-5.2) gm/dL Triglycerides 118 (<150) mg/dl Calcium panel 11/08/18 Range/Units 04:30 Calcium 7.4 L (8.6-10.4) mg/dl Phosphorus 2.0 L (2.7-4.5) mg/dL Albumin 3.1 L (3.2-5.2) gm/dL Pituitary panel 11/08/18 Range/Units 04:30 Sodium 140 (133-145) mmol/L Potassium 3.9 (3.3-5.1) mmol/L Chloride 106 (96-108) mmol/L Carbon Dioxide 24 (22-30) mmol/L BUN 19 (6-20) mg/dl Creatinine 0.8 (0.7-1.2) mg/dl Glucose 80 (70-105) mg/dL Calcium 7.4 L (8.6-10.4) mg/dl Adrenal panel 11/08/18 Range/Units 04:30 Sodium 140 (133-145) mmol/L Potassium 3.9 (3.3-5.1) mmol/L Chloride 106 (96-108) mmol/L Carbon Dioxide 24 (22-30) mmol/L BUN 19 (6-20) mg/dl Creatinine 0.8 (0.7-1.2) mg/dl Glucose 80 (70-105) mg/dL Calcium 7.4 L (8.6-10.4) mg/dl Total Bilirubin 0.5 (0.0-1.0) mg/dL AST 19 (0-37) U/l ALT 12 (0-40) U/l Alkaline Phosphatase 61 (39-117) U/L Total Protein 5.5 L (5.9-8.4) gm/dL Albumin 3.1 L (3.2-5.2) gm/dL Assessment and Plan (1) Duodenal ulcer Status: Acute Assessment and plan: Continue present therapy. Monitor hemoglobin closely. Advance diet tomorrow if he continues to progress and improve Current Visit: Yes (2) Mass of duodenum Status: Acute Current Visit: Yes (3) Acute on chronic blood loss anemia Status: Acute Current Visit: Yes - Time Spent With Patient Total time spent is greater than 50% in coordination of care (as documented) at patient's floor/unit and/or counseling patient:
[2018-11-08] MEDS ORDERED: NALOXONE HCL 0.4 MG/ML VIAL IV PRN (15:42)
[2018-11-08] MEDS ORDERED: ONDANSETRON 4 MG/2 ML VIAL IV PRN (15:42)
[2018-11-08] MEDS ORDERED: HYDROmorphone 2 MG/ML VIAL IV PRN (15:42)
[2018-11-08] MEDS: CLARITHROMYCIN 500 MG TABLET PO SCH (15:57)
[2018-11-08 16:28] LABS: Basophils # (Auto) 0 K/mcL (0.0-0.3); Basophils % (Auto) 0.3 % (0.0-2.0); Eosinophils # (Auto) 0.2 K/mcL (0.0-0.7); Eosinophils % (Auto) 3.7 % (0.0-7.0); Granulocytes % (Auto) 57.4 % (38.0-78.0); Lymphocytes # (Auto) 1.6 K/mcL (1.5-4.8); Lymphocytes % (Auto) 24.7 % (15.5-49.0); Mean Cell Volume 77.4 fL (80.0-100.0); Mean Corpuscular HGB Conc 31.8 g/dL (31.0-36.0); Monocytes # (Auto) 0.9 K/mcL (0.1-0.9); Monocytes % (Auto) 13.9 % (1.0-12.0); Platelet Count 271 K/mcL (140-440); RBC 4.18 M/mcL (4.50-5.90); Red Cell Distribution Width 18.8 % (11.5-14.5)
[2018-11-08] MEDS ORDERED: PANTOPRAZOLE 40 MG VIAL IV SCH (17:00)
[2018-11-08] MEDS: PANTOPRAZOLE 40 MG VIAL IV SCH (17:20)
[2018-11-08] MEDS ORDERED: THIAMINE 100 MG TABLET PO SCH (21:00)
[2018-11-08] MEDS ORDERED: FOLIC ACID/VITAMIN B COMP W-C 1 TAB TABLET PO SCH (21:00)
[2018-11-08] MEDS ORDERED: ZOLPIDEM 5 MG TABLET PO PRN (22:46)
[2018-11-08] MEDS ORDERED: ZOLPIDEM 5 MG TABLET ONE (22:50)
[2018-11-09] MEDS: CLARITHROMYCIN 500 MG TABLET PO SCH ×3 (01:13→20:29)
[2018-11-09] MEDS: DEXTROSE 5%-1/2NS W/20MEQ KCL 1,000 ML IV SCH ×2 (02:00→18:36)
[2018-11-09] MEDS: 0.9 % SODIUM CHLORIDE 10 ML SYRINGE IV SCH ×3 (05:38→20:29)
[2018-11-09] MEDS: METOCLOPRAMIDE 10 MG/2 ML VIAL IV SCH ×3 (05:38→17:22)
[2018-11-09 06:06] LABS: Basophils # (Auto) 0 K/mcL (0.0-0.3); Basophils % (Auto) 0.4 % (0.0-2.0); Eosinophils # (Auto) 0.4 K/mcL (0.0-0.7); Eosinophils % (Auto) 6.3 % (0.0-7.0); Granulocytes % (Auto) 63.4 % (38.0-78.0); Lymphocytes # (Auto) 1.3 K/mcL (1.5-4.8); Lymphocytes % (Auto) 18.3 % (15.5-49.0); Mean Cell Volume 77.4 fL (80.0-100.0); Monocytes # (Auto) 0.8 K/mcL (0.1-0.9); Monocytes % (Auto) 11.6 % (1.0-12.0); Platelet Count 290 K/mcL (140-440); Red Cell Distribution Width 18.6 % (11.5-14.5)
[2018-11-09 06:23] LABS: ALT/SGPT 12 U/l (0-40); Albumin 3.4 gm/dL (3.2-5.2); Albumin/Globulin Ratio 1.4 (1.0-2.3); Alkaline Phosphatase 61 U/L (39-117); Bilirubin,Direct < 0.2 mg/dL (0.0-0.3); Blood Urea Nitrogen 9 mg/dl (6-20); Gamma Glutamyl Transpeptidase 7 U/L (8-61); Uric Acid 2.1 mg/dL (2.5-8.0)
[2018-11-09] MEDS: PANTOPRAZOLE 40 MG VIAL IV SCH ×2 (07:42→17:22)
[2018-11-09] MEDS ORDERED: DEXTROSE 5%-1/2NS W/20MEQ KCL 1,000 ML IV SCH (07:51)
[2018-11-09] MEDS ORDERED: HYDROmorphone 2 MG/ML VIAL IV PRN (07:51)
[2018-11-09] MEDS ORDERED: ONDANSETRON 4 MG/2 ML VIAL IV PRN (07:51)
[2018-11-09] MEDS ORDERED: NALOXONE HCL 0.4 MG/ML VIAL IV PRN (07:51)
[2018-11-09] MEDS ORDERED: ZOLPIDEM 5 MG TABLET PO PRN (07:51)
[2018-11-09] MEDS ORDERED: VANCOMYCIN 1,000 MG in 0.9 % SODIUM CHLORIDE 250 ML IV SCH (09:00)
[2018-11-09] MEDS ORDERED: THIAMINE 100 MG in 0.9 % SODIUM CHLORIDE 50 ML IV SCH (09:00)
--- NOTE | 2018-11-09 09:12 | Internal Med Progress Note ---
Medical - PN: Subj Patient information: Note initiated : 11/09/18 at 8:54 am Service Date, if different from initiated Date: [] Patient: Tony Olea 58 y/o M admitted on 11/07/18 for dizziness and falls x 2 today. Chief Complaint: [] Interval history: Mr. Olea is a 58 year old M with history of some stomach issues presents to the hospital today for evaluation of weakness, few episodes of falls, nausea vomiting and bright red blood according to the patient in vomitus. The patient does not like to be in the hospital or believe much in doctors however his family forced him to come to the hospital. the patient notes his symptoms have been going on for the last 4 days, he has not been able to eat or drink much since then. He notes vomitus is bright red in color, last episode 2 hours ago. He denies any black stools, or bright red blood in stools. The patient admits to having some fever chills occasional night sweats and some weight loss. He denies any history of alcohol use or tobacco use, does admit to marijuana use. He does not follow-up with regular provider however on chart review it seems he has had this issue with some nausea and vomiting abdominal pain in the past, he is also had hematemesis in [facility]. Last year he had an upper endoscopy done at [facility] where and he reported that they found a mass in his stomach and they wanted to operate or remove this mass, he said it was a mobile mass, but he did not follow-up on this In the emergency room on presentation patient was tachycardic, hypertensive but afebrile saturating more than 90% on room air. Labs show hemoglobin of 10, WBC count of 15, platelets of 442, MCV 72. Chemistry shows mild renal dysfunction, lactic acid is 4.1, CT abdomen and pelvis shows gastritis thickened gastric wall, [id number] urinalysis is negative Patient is being admitted to the ICU for further management is on IV PPI GI has been consulted plan for endoscopy tomorrow morning 11/07 Patient seen examined, patient has no new complaints or concerns today, abdominal pain resolved no vomiting. H/H stable, but has received 2 units of blood, Remains hemodynamically stable GI consult and EGD pending. 11/08 Patient seen and examined, no acute overnight issues, s/p EGD noted to have duodenal mass, with possible gastric obstruction. Dr Babcock has been consulted. He is following the patient Pt was sleeping comfortably this AM no hematemeisis or cathy reported Pt remains on PPI drip, h/h is now stable, will switch to IV PPI bid xfer to tele status. 11/09 Patient seen examined, no acute issues, tolerating po diet well, will advance to low resideue diet ON IV PPI, bid anticipate d/c plan for surgery. Pertinent ROS: Denies headache, dizziness Denies chest pain, palpitations Denies cough or shortness of breath Denies abdominal pain, nausea or vomiting. - Constitutional Vitals: Vital Signs Temp Pulse Resp BP Pulse Ox 99.0 F 72 16 108/83 100 11/09/18 04:01 11/07/18 16:07 11/09/18 04:31 11/09/18 04:31 11/09/18 04:31 Period Temp Pulse Resp BP Sys/Bronson Pulse Ox Last 24 Hr 98.0 F-99.6 F 15-25 83-131/70-109 69-100 Intake and Output 11/08/18 11/09/18 11/09/18 21:59 05:59 13:59 Intake Total 1425 540 Output Total 2700 1075 650 Balance -1275 -535 -650 Weight 107 lb 8 oz Intake & Output: Intake & Output 11/08/18 11/09/18 11/09/18 21:59 05:59 13:59 Intake Total 1425 540 Output Total 2700 1075 650 Balance -1275 -535 -650 Weight 107 lb 8 oz Intake: Nourishment/Supplement quantity 90 (ml) IV 35 Oral 1300 540 Output: Void Amount 1800 1075 650 Urine/Stool Mix 900 Other: Meal Dinner Percent of Meal Consumed 50% Nourishment/Supplement name popsicle Urine Appearance Clear Clear Urine Color Pale Pale Urine Odor Normal Normal Stool Size Large Stool Color Black Green Black Stool Consistency Liquid Watery # Voids 1 # Bowel Movements 1 Exam: Constitutional; Afebrile, cooperative, alert, not in distress. Respiratory system: Air Entry equal on both sides, No crackles or wheezing, no rhonchi. CVS- Rate rhythm regular, S1,S2 heard, no gallop, no rub. Abdomen- Soft nontender abdomen, no organomegaly, no tenderness, no guarding or rigidity, [employer]- AOOx3, moving all extremities, no gross focal deficit noted. Medical - PN: Obj Da - Labs CBC & Chem 7: 11/09/18 03:50 11/09/18 03:50 Labs: Abnormal Lab Results 11/09/18 11/09/18 11/08/18 03:50 03:50 15:52 WBC RBC 4.00 L 4.18 L Hgb 9.9 L 10.3 L Hct 30.9 L 32.4 L POC Hct MCV 77.4 L 77.4 L MCH 24.8 L 24.6 L RDW 18.6 H 18.8 H Plt Count MPV 7.2 L [place] % (Auto) 13.9 H Gran # Lymph # (Auto) 1.3 L [place] # (Auto) Seg Neutrophils % Lymphocytes % Platelet Estimate RBC Morphology Polychromasia Hypochromasia Anisocytosis Microcytosis VBG Lactic Acid POC BUN BUN Creatinine POC Creatinine Glucose POC Glucose Uric Acid 2.1 L Calcium 7.9 L POC WB Ioniz Calcium Phosphorus Iron Transferrin % Sat Ferritin Total Bilirubin GGT 7 L Lactate Dehydrogenase Total Protein Albumin Ur Amphetamines Screen U Marijuana (THC) Screen 11/08/18 11/08/18 11/07/18 04:30 04:30 09:58 WBC RBC 4.01 L Hgb 9.8 L Hct 31.0 L POC Hct MCV 77.4 L MCH 24.5 L RDW 18.6 H Plt Count MPV [place] % (Auto) Gran # Lymph # (Auto) [place] # (Auto) Seg Neutrophils % Lymphocytes % Platelet Estimate RBC Morphology Polychromasia Hypochromasia Anisocytosis Microcytosis VBG Lactic Acid POC BUN BUN 23 H Creatinine POC Creatinine Glucose POC Glucose Uric Acid 1.5 L Calcium 7.4 L 7.6 L POC WB Ioniz Calcium Phosphorus 2.0 L Iron Transferrin % Sat Ferritin Total Bilirubin 1.3 H GGT 6 L 6 L Lactate Dehydrogenase 254 H 275 H Total Protein 5.5 L 5.5 L Albumin 3.1 L 3.0 L Ur Amphetamines Screen U Marijuana (THC) Screen 11/07/18 11/07/18 11/06/18 07:58 00:55 22:15 WBC 11.9 H RBC 4.33 L Hgb 10.6 L Hct 33.4 L POC Hct MCV 77.1 L MCH 24.5 L RDW 20.1 H Plt Count MPV [place] % (Auto) Gran # 8.2 H Lymph # (Auto) [place] # (Auto) 1.2 H Seg Neutrophils % Lymphocytes % Platelet Estimate RBC Morphology Polychromasia Hypochromasia Anisocytosis Microcytosis VBG Lactic Acid 4.1 H* POC BUN BUN Creatinine POC Creatinine Glucose POC Glucose Uric Acid Calcium POC WB Ioniz Calcium Phosphorus Iron 24 L Transferrin % Sat 6 L Ferritin 10.7 L Total Bilirubin GGT Lactate Dehydrogenase Total Protein Albumin Ur Amphetamines Screen U Marijuana (THC) Screen 11/06/18 11/06/18 11/06/18 22:15 22:15 01:00 WBC 15.9 H RBC 4.40 L Hgb 10.1 L Hct 32.1 L POC Hct 33.0 L MCV 72.9 L MCH 22.9 L RDW 17.3 H Plt Count 442 H MPV [place] % (Auto) Gran # Lymph # (Auto) [place] # (Auto) Seg Neutrophils % 88 H Lymphocytes % 6 L Platelet Estimate Increased A RBC Morphology Abnorm A Polychromasia 1+ A Hypochromasia 1+ A Anisocytosis 1+ A Microcytosis 2+ A VBG Lactic Acid POC BUN 39 H BUN 42 H Creatinine 1.3 H POC Creatinine 1.4 H Glucose 142 H POC Glucose 138 H Uric Acid Calcium 8.5 L POC WB Ioniz Calcium 1.03 L Phosphorus Iron Transferrin % Sat Ferritin Total Bilirubin GGT Lactate Dehydrogenase Total Protein Albumin Ur Amphetamines Screen Suspect positive A U Marijuana (THC) Screen Suspect positive A Meds: Medications Amoxicillin (Amoxicillin) 500 mg PO BID [facility]; Protocol Clarithromycin (Biaxin) 500 mg PO BID [facility] Hydromorphone HCl (Dilaudid) 0.5 mg IV Q2HP PRN PRN Reason: PAIN LEVEL > 6 Potassium Chloride/Dextrose/Sod Cl (Dextrose 5%-1/2ns W/20meq Kcl) 1,000 mls @ 75 mls/hr IV .[id number] [facility] Metoclopramide HCl (Reglan) 5 mg IV Q6 [facility] Multivit/Ca Carb/B Cmplx/FA/Prenat (Diatx) 1 tab PO HS [facility] Naloxone HCl (Narcan) 0.1 mg IV Q2MIN PRN PRN Reason: Opiate Reversal Ondansetron HCl (Zofran) 4 mg IV Q4-6HP PRN PRN Reason: Nausea And Vomiting Pantoprazole Sodium (Protonix) 40 mg IV BIDAC AKANKSHA Sodium Chloride (Saline Flush) 10 ml IV Q8 [facility]ANK[facility] Thiamine HCl (Vitamin B1) 100 mg PO HS AKANKSHA Zolpidem Tartrate (Ambien) 5 mg PO HSP PRN PRN Reason: Insomnia Medical - PN: A/P - Time Spent With Patient Total time spent is greater than 50% in coordination of care (as documented) at patient's floor/unit and/or counseling patient: - Narrative A/P Narrative: A/P Upper GI bleed Duodenal mass Leucocytosis- resolved Lactic acidosis - resolved acute renal failure,- resolved Hypotension-resolved Anemia, Acute blood loss Iron deficiency Marijuan abuse Hpylori infection Plan UGI due to duodenal bleed IV ppi bid Await further surgery recommendations on duodenal mass and gastric outlet obstruction. On clarithromycin and amoxicillin for hyplori, will need 14 days of treatment, along with PPI xfer to med surg DVT scd Full code low residue diet Medical - PN: Qual - Stroke Symptom Onset Unknown: No - VTE Deep Vein Thrombosis/Pulmonary Embolism Present on Admission: No
[2018-11-09] MEDS: AMOXICILLIN 250 MG CAPSULE PO SCH ×2 (09:30→20:29)
--- NOTE | 2018-11-09 12:49 | Internal Med Progress Note ---
Medical - PN: Subj Patient information: Note initiated : 11/09/18 at 12:46 pm Service Date, if different from initiated Date: [] Patient: Tony Olea 58 y/o M admitted on 11/07/18 for dizziness and falls x 2 today. Chief Complaint: [] Interval history: Mr. Olea is a 58 year old M with history of some stomach issues presents to the hospital today for evaluation of weakness, few episodes of falls, nausea vomiti ng and bright red blood according to the patient in vomitus. The patient does not like to be in the hospital or believe much in doctors however his family forced him to come to the hospital. the patient notes his symptoms have been going on for the last 4 days, he has not been able to eat or drink much since then. He notes vomitus is bright red in color, last episode 2 hours ago. He denies any black stools, or bright red blood in stools. The patient admits to having some fever chills occasional night sweats and some weight loss. He denies any history of alcohol use or tobacco use, does admit to marijuana use. He does not follow-up with regular provider however on chart review it seems he has had this issue with some nausea and vomiting abdominal pain in the past, he is also had hematemesis in [facility]. Last year he had an upper endoscopy done at [facility] where and he reported that they found a mass in his stomach and they wanted to operate or remove this mass, he said it was a mobile mass, but he did not follow-up on this In the emergency room on presentation patient was tachycardic, hypertensive but afebrile saturating more than 90% on room air. Labs show hemoglobin of 10, WBC count of 15, platelets of 442, MCV 72. Chemistry shows mild renal dysfunction, lactic acid is 4.1, CT abdomen and pelvis shows gastritis thickened gastric wall, [id number] urinalysis is negative Patient is being admitted to the ICU for further management is on IV PPI GI has been consulted plan for endoscopy tomorrow morning 11/07 Patient seen examined, patient has no new complaints or concerns today, abdominal pain resolved no vomiting. H/H stable, but has received 2 units of blood, Remains hemodynamically stable GI consult and EGD pending. 11/08 Patient seen and examined, no acute overnight issues, s/p EGD noted to have duodenal mass, with possible gastric obstruction. Dr Babcock has been consulted. He is following the patient Pt was sleeping comfortably this AM no hematemeisis or cathy reported Pt remains on PPI drip, h/h is now stable, will switch to IV PPI bid xfer to tele status. 11/09 Patient seen examined, no acute issues, tolerating po diet well, will advance to low resideue diet ON IV PPI, bid anticipate d/c plan for surgery. 11/10 - Constitutional Vitals: Vital Signs Temp Pulse Resp BP Pulse Ox 98.3 F 100 H 17 92/63 98 11/09/18 11:22 11/09/18 11:22 11/09/18 11:22 11/09/18 11:22 11/09/18 11:22 Period Temp Pulse Resp BP Sys/Bronson Pulse Ox Last 24 Hr 98.0 F-99.6 F 100 15-25 83-131/63-109 69-100 Intake and Output 11/08/18 11/09/18 11/09/18 21:59 05:59 13:59 Intake Total 1425 540 120 Output Total 2700 1075 650 Balance -1275 -535 -530 Weight 48.761 kg Intake & Output: Intake & Output 11/08/18 11/09/18 11/09/18 21:59 05:59 13:59 Intake Total 1425 540 120 Output Total 2700 1075 650 Balance -1275 -535 -530 Weight 48.761 kg Intake: Nourishment/Supplement quantity 90 (ml) IV 35 Oral 1300 540 120 Output: Void Amount 1800 1075 650 Urine/Stool Mix 900 Other: Meal Dinner Breakfast Percent of Meal Consumed 50% 90 Feeding Ability Independent Nourishment/Supplement name popsicle Urine Appearance Clear Clear Urine Color Pale Pale Urine Odor Normal Normal Stool Size Large Stool Color Black Green Black Black Stool Consistency Liquid Watery Loose # Voids 1 1 # Bowel Movements 1 1 Exam: General: Alert, Awake, No acute Distress Eyes/N/T: EOMI, Head/Neck: neck supple, CV: RRR, No murmurs, Pulm: Clear b/l, no wheezing/rhonchi/rales Abd: soft, nontender, +BS x4 Ext: no clubbing/cyanosis/edema Neuro: Alert, no focal deficits, moves all extremities, Skin: warm/dry Medical - PN: Obj Da - Labs CBC & Chem 7: 11/09/18 03:50 11/09/18 03:50 Labs: Abnormal Lab Results 11/09/18 11/09/18 11/08/18 03:50 03:50 15:52 WBC RBC 4.00 L 4.18 L Hgb 9.9 L 10.3 L Hct 30.9 L 32.4 L POC Hct MCV 77.4 L 77.4 L MCH 24.8 L 24.6 L RDW 18.6 H 18.8 H Plt Count MPV 7.2 L [place] % (Auto) 13.9 H Gran # Lymph # (Auto) 1.3 L [place] # (Auto) Seg Neutrophils % Lymphocytes % Platelet Estimate RBC Morphology Polychromasia Hypochromasia Anisocytosis Microcytosis VBG Lactic Acid POC BUN BUN Creatinine POC Creatinine Glucose POC Glucose Uric Acid 2.1 L Calcium 7.9 L POC WB Ioniz Calcium Phosphorus Iron Transferrin % Sat Ferritin Total Bilirubin GGT 7 L Lactate Dehydrogenase Total Protein Albumin Ur Amphetamines Screen U Marijuana (THC) Screen 11/08/18 11/08/18 11/07/18 04:30 04:30 09:58 WBC RBC 4.01 L Hgb 9.8 L Hct 31.0 L POC Hct MCV 77.4 L MCH 24.5 L RDW 18.6 H Plt Count MPV [place] % (Auto) Gran # Lymph # (Auto) [place] # (Auto) Seg Neutrophils % Lymphocytes % Platelet Estimate RBC Morphology Polychromasia Hypochromasia Anisocytosis Microcytosis VBG Lactic Acid POC BUN BUN 23 H Creatinine POC Creatinine Glucose POC Glucose Uric Acid 1.5 L Calcium 7.4 L 7.6 L POC WB Ioniz Calcium Phosphorus 2.0 L Iron Transferrin % Sat Ferritin Total Bilirubin 1.3 H GGT 6 L 6 L Lactate Dehydrogenase 254 H 275 H Total Protein 5.5 L 5.5 L Albumin 3.1 L 3.0 L Ur Amphetamines Screen U Marijuana (THC) Screen 11/07/18 11/07/18 11/06/18 07:58 00:55 22:15 WBC 11.9 H RBC 4.33 L Hgb 10.6 L Hct 33.4 L POC Hct MCV 77.1 L MCH 24.5 L RDW 20.1 H Plt Count MPV [place] % (Auto) Gran # 8.2 H Lymph # (Auto) [place] # (Auto) 1.2 H Seg Neutrophils % Lymphocytes % Platelet Estimate RBC Morphology Polychromasia Hypochromasia Anisocytosis Microcytosis VBG Lactic Acid 4.1 H* POC BUN BUN Creatinine POC Creatinine Glucose POC Glucose Uric Acid Calcium POC WB Ioniz Calcium Phosphorus Iron 24 L Transferrin % Sat 6 L Ferritin 10.7 L Total Bilirubin GGT Lactate Dehydrogenase Total Protein Albumin Ur Amphetamines Screen U Marijuana (THC) Screen 11/06/18 11/06/18 11/06/18 22:15 22:15 01:00 WBC 15.9 H RBC 4.40 L Hgb 10.1 L Hct 32.1 L POC Hct 33.0 L MCV 72.9 L MCH 22.9 L RDW 17.3 H Plt Count 442 H MPV [place] % (Auto) Gran # Lymph # (Auto) [place] # (Auto) Seg Neutrophils % 88 H Lymphocytes % 6 L Platelet Estimate Increased A RBC Morphology Abnorm A Polychromasia 1+ A Hypochromasia 1+ A Anisocytosis 1+ A Microcytosis 2+ A VBG Lactic Acid POC BUN 39 H BUN 42 H Creatinine 1.3 H POC Creatinine 1.4 H Glucose 142 H POC Glucose 138 H Uric Acid Calcium 8.5 L POC WB Ioniz Calcium 1.03 L Phosphorus Iron Transferrin % Sat Ferritin Total Bilirubin GGT Lactate Dehydrogenase Total Protein Albumin Ur Amphetamines Screen Suspect positive A U Marijuana (THC) Screen Suspect positive A Meds: Medications Amoxicillin (Amoxicillin) 500 mg PO BID [facility]; Protocol Last Admin: 11/09/18 09:30 Dose: 500 mg Documented by: Clarithromycin (Biaxin) 500 mg PO BID [facility] Last Admin: 11/09/18 09:30 Dose: 500 mg Documented by: Hydromorphone HCl (Dilaudid) 0.5 mg IV Q2HP PRN PRN Reason: PAIN LEVEL > 6 Potassium Chloride/Dextrose/Sod Cl (Dextrose 5%-1/2ns W/20meq Kcl) 1,000 mls @ 75 mls/hr IV .[id number] [facility] Last Admin: 11/09/18 10:31 Dose: 75 mls/hr Documented by: Metoclopramide HCl (Reglan) 5 mg IV Q6 [facility] Last Admin: 11/09/18 11:42 Dose: 5 mg Documented by: Multivit/Ca Carb/B Cmplx/FA/Prenat (Diatx) 1 tab PO HS AKANKSHA Naloxone HCl (Narcan) 0.1 mg IV Q2MIN PRN PRN Reason: Opiate Reversal Ondansetron HCl (Zofran) 4 mg IV Q4-6HP PRN PRN Reason: Nausea And Vomiting Pantoprazole Sodium (Protonix) 40 mg IV BIDAC AKANKSHA Sodium Chloride (Saline Flush) 10 ml IV Q8 AKANKSHA Thiamine HCl (Vitamin B1) 100 mg PO HS AKANKSHA Zolpidem Tartrate (Ambien) 5 mg PO HSP PRN PRN Reason: Insomnia Medical - PN: A/P - Time Spent With Patient Total time spent is greater than 50% in coordination of care (as documented) at patient's floor/unit and/or counseling patient: - Narrative A/P Narrative: A: *Upper GI bleed: 2/2 duodenal mass *Duodenal mass: *H. pylori infection: *Leucocytosis- resolved *Lactic acidosis - resolved *MARKEL- resolved *Hypotension- resolved *Anemia, Acute blood loss: *Iron deficiency: *Marijuana abuse: Plan: -IV ppi bid -monitor H&H -Await further surgery recommendations on duodenal mass and gastric outlet obstruction. -On clarithromycin and amoxicillin for hyplori, will need 14 days of treatment, along with PPI -low residue diet - -ppx: scd Full code Medical - PN: Qual - Stroke Symptom Onset Unknown: No - VTE Deep Vein Thrombosis/Pulmonary Embolism Present on Admission: No
--- NOTE | 2018-11-09 15:12 | Surgical Pathology Report ---
HISTOLOGY SPECIMEN MICROSCOPIC DIAGNOSIS DUODENUM, BULB, BIOPSY: -- ACTIVE DUODENITIS WITH ULCERATION AND GASTRIC SURFACE EPITHELIAL TYPE METAPLASIA IDENTIFIED ON ALCIAN BLUE/PAS STAIN (ADEQUATE TECHNICAL CONTROL). -- NO DYSPLASIA OR MALIGNANCY IDENTIFIED, SEE COMMENT. (EBD:josesito) COMMENT: The clinical impression of a duodenal bulb mass is noted. A pancytokeratin (adequate technical control) immunohistochemical stain is performed to rule out involvement by an infiltrative carcinoma. CLINICAL HISTORY GI bleed; dizziness and falls x2 today. PROCEDURAL IMPRESSION Duodenal bulb mass; gastric ulcer. GROSS DESCRIPTION Received in formalin duodenal bulb biopsy, are multiple fox tissue fragments from less than 0.1 to 0.3 cm. Entirely submitted in one cassette. (SCB:adj) Electronically Signed by: Mari Garay M.D.
--- NOTE | 2018-11-09 16:59 | General Surgery Progress Note ---
Subjective Patient reports: feels better, tolerating liquids well, flatus, bowel movement, afebrile Narrative: Note initiated : 11/09/18 at 4:58 pm Service Date, if different from initiated Date: [] Patient: Tony Olea 58 y/o M admitted on 11/07/18 for dizziness and falls x 2 today. Chief Complaint: [patient continues to do well. He denies having any abdominal pain. He is tolerating full liquid diet without nausea or abdominal distention. He had bowel movement which did not have melena or kike blood. Hemoglobin is stable at 9.9, white blood count 7.1.pathology from duodenal biopsies are not available. Hopefully, they will be available by tomorrow. Patient has been started on regular diet and if he continues to do well I feel strongly that he can be discharged home on PPI therapy with plans for follow-up endoscopy in 2 weeks. I have had prolonged discussion with him and his family and they will make every effort to make sure that He has follow-up endoscopy.] Objective Temp Pulse Resp BP Pulse Ox 99.3 F H 77 18 97/70 100 11/09/18 16:00 11/09/18 16:00 11/09/18 16:00 11/09/18 16:00 11/09/18 16:00 - Additional Data Intake & Output - Last 24 hours: Intake & Output 11/07/18 11/08/18 11/09/18 11/10/18 05:59 05:59 05:59 05:59 Intake Total 4664 1955 4273.0909 680 Output Total 6085 5377 650 Balance 8523 -202 -0037.9044 30 Weight 105 lb 6.4 oz 107 lb 1.6 oz 107 lb 8 oz - General physical appearance well developed, well nourished, no distress - Eyes PERRL, normal ocular movement - ENT normal pinna, normal nares, normal mucosa, no hearing loss, no congestion - Neck no masses, no bruits, trachea midline, no lymphadenopathy, no venous distension - Respiratory normal expansion, normal respiratory effort, clear to auscultation - Cardiovascular Cardiovascular exam: Present: normal rate and rhythm, RRR, +S1. Absent: JVD, tachycardia - Abdomen soft, non tender (abdominal exam is benign; he has no distention and no abdominal tenderness) - Integumentary no rash, no growths, no abnormal pigmentation - Neurologic normal coordination, normal sensation - Musculoskeletal normal gait, normal posture - Psychiatric oriented to time, oriented to person, oriented to place, speech is normal, memory intact - Labs 11/09/18 03:50 11/09/18 03:50 Diabetes panel 11/09/18 Range/Units 03:50 Sodium 141 (133-145) mmol/L Potassium 3.8 (3.3-5.1) mmol/L Chloride 108 (96-108) mmol/L Carbon Dioxide 23 (22-30) mmol/L BUN 9 (6-20) mg/dl Creatinine 0.8 (0.7-1.2) mg/dl Glucose 88 (70-105) mg/dL Calcium 7.9 L (8.6-10.4) mg/dl AST 18 (0-37) U/l ALT 12 (0-40) U/l Alkaline Phosphatase 61 (39-117) U/L Total Protein 5.9 (5.9-8.4) gm/dL Albumin 3.4 (3.2-5.2) gm/dL Triglycerides 109 (<150) mg/dl Calcium panel 11/09/18 Range/Units 03:50 Calcium 7.9 L (8.6-10.4) mg/dl Phosphorus 2.9 (2.7-4.5) mg/dL Albumin 3.4 (3.2-5.2) gm/dL Pituitary panel 11/09/18 Range/Units 03:50 Sodium 141 (133-145) mmol/L Potassium 3.8 (3.3-5.1) mmol/L Chloride 108 (96-108) mmol/L Carbon Dioxide 23 (22-30) mmol/L BUN 9 (6-20) mg/dl Creatinine 0.8 (0.7-1.2) mg/dl Glucose 88 (70-105) mg/dL Calcium 7.9 L (8.6-10.4) mg/dl Adrenal panel 11/09/18 Range/Units 03:50 Sodium 141 (133-145) mmol/L Potassium 3.8 (3.3-5.1) mmol/L Chloride 108 (96-108) mmol/L Carbon Dioxide 23 (22-30) mmol/L BUN 9 (6-20) mg/dl Creatinine 0.8 (0.7-1.2) mg/dl Glucose 88 (70-105) mg/dL Calcium 7.9 L (8.6-10.4) mg/dl Total Bilirubin 0.3 (0.0-1.0) mg/dL AST 18 (0-37) U/l ALT 12 (0-40) U/l Alkaline Phosphatase 61 (39-117) U/L Total Protein 5.9 (5.9-8.4) gm/dL Albumin 3.4 (3.2-5.2) gm/dL Assessment and Plan (1) Duodenal ulcer Status: Acute Assessment and plan: Continue present therapy. Monitor hemoglobin closely. Advance diet Follow-up pathology results tomorrow Current Visit: Yes (2) Mass of duodenum Status: Acute Current Visit: Yes (3) Acute on chronic blood loss anemia Status: Acute Current Visit: Yes - Time Spent With Patient Total time spent is greater than 50% in coordination of care (as documented) at patient's floor/unit and/or counseling patient:
[2018-11-09] MEDS ORDERED: FOLIC ACID/VITAMIN B COMP W-C 1 TAB TABLET PO SCH (21:00)
[2018-11-09] MEDS ORDERED: THIAMINE 100 MG TABLET PO SCH (21:00)
[2018-11-10] MEDS: METOCLOPRAMIDE 10 MG/2 ML VIAL IV SCH ×2 (00:07→05:40)
[2018-11-10 05:35] LABS: Basophils # (Auto) 0 K/mcL (0.0-0.3); Basophils % (Auto) 0.3 % (0.0-2.0); Eosinophils # (Auto) 0.5 K/mcL (0.0-0.7); Eosinophils % (Auto) 6.6 % (0.0-7.0); Lymphocytes # (Auto) 2.1 K/mcL (1.5-4.8); Mean Cell Volume 77.8 fL (80.0-100.0); Mean Corpuscular HGB Conc 31.4 g/dL (31.0-36.0); Monocytes # (Auto) 0.8 K/mcL (0.1-0.9); Monocytes % (Auto) 11.1 % (1.0-12.0); Platelet Count 298 K/mcL (140-440); RBC 4.04 M/mcL (4.50-5.90)
[2018-11-10] MEDS: 0.9 % SODIUM CHLORIDE 10 ML SYRINGE IV SCH (05:40)
[2018-11-10 06:43] LABS: ALT/SGPT 13 U/l (0-40); Albumin 3.4 gm/dL (3.2-5.2); Albumin/Globulin Ratio 1.3 (1.0-2.3); Alkaline Phosphatase 67 U/L (39-117); Bilirubin,Direct < 0.2 mg/dL (0.0-0.3); Blood Urea Nitrogen 12 mg/dl (6-20); Gamma Glutamyl Transpeptidase 7 U/L (8-61)
--- NOTE | 2018-11-10 06:54 | Internal Med Progress Note ---
Medical - PN: Subj Patient information: Note initiated : 11/10/18 at 6:52 am Service Date, if different from initiated Date: [] Patient: Tony Olea 58 y/o M admitted on 11/07/18 for dizziness and falls x 2 today. Chief Complaint: [] Interval history: Mr. Olea is a 58 year old M with history of some stomach issues presents to the hospital today for evaluation of weakness, few episodes of falls, nausea vomiting and bright red blood according to the patient in vomitus. The patient does not like to be in the hospital or believe much in doctors however his family forced him to come to the hospital. the patient notes his symptoms have been going on for the last 4 days, he has not been able to eat or drink much since then. He notes vomitus is bright red in color, last episode 2 hours ago. He denies any black stools, or bright red blood in stools. The patient admits to having some fever chills occasional night sweats and some weight loss. He denies any history of alcohol use or tobacco use, does admit to marijuana use. He does not follow-up with regular provider however on chart review it seems he has had this issue with some nausea and vomiting abdominal pain in the past, he is also had hematemesis in [facility]. Last year he had an upper endoscopy done at [facility] where and he reported that they found a mass in his stomach and they wanted to operate or remove this mass, he said it was a mobile mass, but he did not follow-up on this In the emergency room on presentation patient was tachycardic, hypertensive but afebrile saturating more than 90% on room air. Labs show hemoglobin of 10, WBC count of 15, platelets of 442, MCV 72. Chemistry shows mild renal dysfunction, lactic acid is 4.1, CT abdomen and pelvis shows gastritis thickened gastric wall, [id number] urinalysis is negative Patient is being admitted to the ICU for further management is on IV PPI GI has been consulted plan for endoscopy tomorrow morning 11/07 Patient seen examined, patient has no new complaints or concerns today, abdominal pain resolved no vomiting. H/H stable, but has received 2 units of blood, Remains hemodynamically stable GI consult and EGD pending. 11/08 Patient seen and examined, no acute overnight issues, s/p EGD noted to have duodenal mass, with possible gastric obstruction. Dr Babcock has been consulted. He is following the patient Pt was sleeping comfortably this AM no hematemeisis or cathy reported Pt remains on PPI drip, h/h is now stable, will switch to IV PPI bid xfer to tele status. 11/09 Patient seen examined, no acute issues, tolerating po diet well, will advance to low resideue diet ON IV PPI, bid anticipate d/c plan for surgery. 11/10 Tolerating solid diet. No new complaints, no further GI bleeding. Patient doing well and stable for discharge - Constitutional Vitals: Vital Signs Temp Pulse Resp BP Pulse Ox 97.6 F 84 18 103/74 98 11/10/18 06:40 11/10/18 04:00 11/10/18 06:40 11/10/18 06:40 11/10/18 06:40 Period Temp Pulse Resp BP Sys/Bronson Pulse Ox Last 24 Hr 97.6 F-99.3 F 77-100 15-18 92-121/63-82 98-100 Intake and Output 11/09/18 11/10/18 11/10/18 21:59 05:59 13:59 Intake Total 560 1250 Output Total 300 Balance 260 1250 Weight 49.442 kg Intake & Output: Intake & Output 11/09/18 11/10/18 11/10/18 21:59 05:59 13:59 Intake Total 560 1250 Output Total 300 Balance 260 1250 Weight 49.442 kg Intake: Oral 560 1250 Output: Void Amount 300 Other: Meal Dinner Percent of Meal Consumed 100% Feeding Ability Independent Exam: General: Alert, Awake, No acute Distress Eyes/N/T: EOMI, Head/Neck: neck supple, CV: RRR, No murmurs, Pulm: Clear b/l, no wheezing/rhonchi/rales Abd: soft, nontender, +BS x4 Ext: no clubbing/cyanosis/edema Neuro: Alert, no focal deficits, moves all extremities, Skin: warm/dry Medical - PN: Obj Da - Labs CBC & Chem 7: 11/10/18 04:30 11/10/18 04:30 Labs: Abnormal Lab Results 11/10/18 11/10/18 11/09/18 04:30 04:30 03:50 WBC RBC 4.04 L Hgb 9.9 L Hct 31.4 L MCV 77.8 L MCH 24.4 L RDW 19.0 H MPV [place] % (Auto) Gran # Lymph # (Auto) [place] # (Auto) BUN Uric Acid 2.1 L Calcium 8.2 L 7.9 L Phosphorus Total Bilirubin GGT 7 L 7 L Lactate Dehydrogenase Total Protein Albumin 11/09/18 11/08/18 11/08/18 03:50 15:52 04:30 WBC RBC 4.00 L 4.18 L Hgb 9.9 L 10.3 L Hct 30.9 L 32.4 L MCV 77.4 L 77.4 L MCH 24.8 L 24.6 L RDW 18.6 H 18.8 H MPV 7.2 L [place] % (Auto) 13.9 H Gran # Lymph # (Auto) 1.3 L [place] # (Auto) BUN Uric Acid 1.5 L Calcium 7.4 L Phosphorus 2.0 L Total Bilirubin GGT 6 L Lactate Dehydrogenase 254 H Total Protein 5.5 L Albumin 3.1 L 11/08/18 11/07/18 11/07/18 04:30 09:58 07:58 WBC 11.9 H RBC 4.01 L 4.33 L Hgb 9.8 L 10.6 L Hct 31.0 L 33.4 L MCV 77.4 L 77.1 L MCH 24.5 L 24.5 L RDW 18.6 H 20.1 H MPV [place] % (Auto) Gran # 8.2 H Lymph # (Auto) [place] # (Auto) 1.2 H BUN 23 H Uric Acid Calcium 7.6 L Phosphorus Total Bilirubin 1.3 H GGT 6 L Lactate Dehydrogenase 275 H Total Protein 5.5 L Albumin 3.0 L Meds: Medications Amoxicillin (Amoxicillin) 500 mg PO BID [facility]; Protocol Last Admin: 11/09/18 20:29 Dose: 500 mg Documented by: Clarithromycin (Biaxin) 500 mg PO BID [facility] Last Admin: 11/09/18 20:29 Dose: 500 mg Documented by: Hydromorphone HCl (Dilaudid) 0.5 mg IV Q2HP PRN PRN Reason: PAIN LEVEL > 6 Metoclopramide HCl (Reglan) 5 mg IV Q6 [facility] Last Admin: 11/10/18 05:40 Dose: 5 mg Documented by: Multivit/Ca Carb/B Cmplx/FA/Prenat (Diatx) 1 tab PO [facility] Last Admin: 11/09/18 20:29 Dose: 1 tab Documented by: Naloxone HCl (Narcan) 0.1 mg IV Q2MIN PRN PRN Reason: Opiate Reversal Ondansetron HCl (Zofran) 4 mg IV Q4-6HP PRN PRN Reason: Nausea And Vomiting Pantoprazole Sodium (Protonix) 40 mg IV BIDAC [facility] Last Admin: 11/09/18 17:22 Dose: 40 mg Documented by: Sodium Chloride (Saline Flush) 10 ml IV Q8 [facility] Last Admin: 11/10/18 05:40 Dose: 10 ml Documented by: Thiamine HCl (Vitamin B1) 100 mg PO [facility] Last Admin: 11/09/18 20:29 Dose: 100 mg Documented by: Zolpidem Tartrate (Ambien) 5 mg PO HSP PRN PRN Reason: Insomnia Last Admin: 11/10/18 00:07 Dose: 5 mg Documented by: Medical - PN: A/P - Time Spent With Patient Total time spent is greater than 50% in coordination of care (as documented) at patient's floor/unit and/or counseling patient: - Narrative A/P Narrative: A: *Upper GI bleed: 2/2 duodenal mass *Duodenal mass: *Anemia, Acute blood loss: H&H stable *H. pylori infection: *Leucocytosis- resolved *Lactic acidosis - resolved *MARKEL- resolved *Hypotension- resolved *Iron deficiency: *Marijuana abuse: Plan: -IV ppi bid -monitor H&H -Await further surgery recommendations on duodenal mass and gastric outlet obstruction. -On clarithromycin and amoxicillin for hyplori, will need 14 days of treatment, along with PPI -low residue diet - -ppx: scd Full code Medical - PN: Qual - Stroke Symptom Onset Unknown: No - VTE Deep Vein Thrombosis/Pulmonary Embolism Present on Admission: No
--- NOTE | 2018-11-10 07:56 | Discharge Summary ---
Medical - DS: Prov Patient information: Note initiated : 11/10/18 at 7:53 am Service Date, if different from initiated Date: [] Patient: Tony Olea 58 y/o M admitted on 11/07/18 for dizziness and falls x 2 today. Chief Complaint: [] Date of admission: 11/07/18 00:57 Discharge date: 11/10/18 Consults: 11/06/18 Consult to Physician [CONS] Stat Comment: Consulting Provider: Aaron Daugherty Reason For Exam: Physician to Consult 11/07/18 Consult to Physician [CONS] Stat Comment: Consulting Provider: Migel Lala Reason For Exam: Physician to Consult 11/07/18 16:16 Consult to Physician [CONS] Routine Comment: Consulting Provider: Esther Babcock Reason For Exam: Physician to Consult Medical - DS: Meds - Discharge Medications Prescriptions: Amoxicillin 500 mg PO BID #22 cap Clarithromycin [Biaxin] 500 mg PO BID #22 tab Omeprazole [Prilosec] 40 mg PO BIDAC #60 cap Active and Home Medications: Home Medications No Known Home Meds 11/07/18 [History Confirmed 11/07/18 Last Taken Unknown] Medical - DS: Hosp Hospital course: Mr. Olea is a 58 year old M Mr. Olea is a 58 year old M with history of some stomach issues presents to the hospital today for evaluation of weakness, few episodes of falls, nausea vomiting and bright red blood according to the patient in vomitus. The patient does not like to be in the hospital or believe much in doctors however his family forced him to come to the hospital. the patient notes his symptoms have been going on for the last 4 days, he has not been able to eat or drink much since then. He notes vomitus is bright red in color, last episode 2 hours ago. He denies any black stools, or bright red blood in stools. The patient admits to having some fever chills occasional night sweats and some weight loss. He denies any history of alcohol use or tobacco use, does admit to marijuana use. He does not follow-up with regular provider however on chart review it seems he has had this issue with some nausea and vomiting abdominal pain in the past, he is also had hematemesis in Thanksgiving. Last year he had an upper endoscopy done at [facility] where and he reported that they found a mass in his stomach and they wanted to operate or remove this mass, he said it was a mobile mass, but he did not follow-up on this In the emergency room on presentation patient was tachycardic, hypertensive but afebrile saturating more than 90% on room air. Labs show hemoglobin of 10, WBC count of 15, platelets of 442, MCV 72. Chemistry shows mild renal dysfunction, lactic acid is 4.1, CT abdomen and pelvis shows gastritis thickened gastric wall, [id number] urinalysis is negative Patient is being admitted to the ICU for further management is on IV PPI GI has been consulted plan for endoscopy tomorrow morning 11/07 Patient seen examined, patient has no new complaints or concerns today, abdominal pain resolved no vomiting. H/H stable, but has received 2 units of blood, Remains hemodynamically stable GI consult and EGD pending. 11/08 Patient seen and examined, no acute overnight issues, s/p EGD noted to have duodenal mass, with possible gastric obstruction. Dr Babcock has been consulted. He is following the patient Pt was sleeping comfortably this AM no hematemeisis or cathy reported Pt remains on PPI drip, h/h is now stable, will switch to IV PPI bid xfer to tele status. 11/09 Patient seen examined, no acute issues, tolerating po diet well, will advance to low resideue diet ON IV PPI, bid anticipate d/c plan for surgery. 11/10 Tolerating solid diet. No new complaints, no further GI bleeding. Patient doing well and stable for discharge Discharge diagnosis: Duodenal mass with ulceration upper GI bleed anemia H. pylori Secondary discharge diagnosis: Acute kidney injury iron deficiency anemia - Time Spent with Patient Total time spent providing and/or coordinating discharge services: Greater than 30 minutes Medical - DS: Exam - Constitutional Vitals: Vital Signs Temp Pulse Pulse Resp BP BP Pulse Ox 11/10/18 06:40 97.6 F 18 103/74 98 11/10/18 04:00 98.8 F 84 16 107/73 99 11/09/18 23:35 98.8 F 98 H 16 121/76 100 11/09/18 18:55 98.4 F 88 16 118/81 100 11/09/18 16:00 99.3 F H 77 18 97/70 100 11/09/18 11:22 98.3 F 100 H 17 92/63 98 11/09/18 08:01 98.9 F 15 105/82 99 Intake and Output 11/09/18 11/10/18 11/10/18 21:59 05:59 13:59 Intake Total 560 1250 Output Total 300 Balance 260 1250 Intake: Oral 560 1250 Output: Void Amount 300 Other: Meal Dinner Percent of Meal Consumed 100% Feeding Ability Independent Weight 49.442 kg Medical - DS: Data Labs on day of discharge: Labs from last 24 hours 11/10/18 11/10/18 04:30 04:30 WBC 7.4 RBC 4.04 L Hgb 9.9 L Hct 31.4 L MCV 77.8 L MCH 24.4 L MCHC 31.4 RDW 19.0 H Plt Count 298 MPV 7.5 Gran % 53.0 Lymph % (Auto) 29.0 Izard % (Auto) 11.1 Eos % (Auto) 6.6 Baso % (Auto) 0.3 Gran # 3.9 Lymph # (Auto) 2.1 Izard # (Auto) 0.8 Eos # (Auto) 0.5 Baso # (Auto) 0 Sodium 138 Potassium 3.8 Chloride 102 Carbon Dioxide 24 Anion Gap 12.0 BUN 12 Creatinine 0.8 GFR Calculation 98 Glucose 90 Uric Acid 3.0 Calcium 8.2 L Phosphorus 3.7 Magnesium 2.0 Total Bilirubin 0.2 Direct Bilirubin < 0.2 GGT 7 L AST 18 ALT 13 Alkaline Phosphatase 67 Lactate Dehydrogenase 218 Total Protein 6.0 Albumin 3.4 Globulin 2.6 Albumin/Globulin Ratio 1.3 Triglycerides 70 Preliminary micro results at discharge 11/06/18 22:15 Blood Culture - Preliminary Blood 11/06/18 22:20 Blood Culture - Preliminary Blood Medical - DS: A/P - Patient/Caregiver Discharge Instructions Activity: increase activity as tolerated Diet: Low Fiber Prescriptions: Amoxicillin 500 mg PO BID #22 cap Clarithromycin [Biaxin] 500 mg PO BID #22 tab Omeprazole [Prilosec] 40 mg PO BIDAC #60 cap - Follow up Plan Follow up with: Gerry Andrade MD [Physician] - Esther Babcock MD [Physician] - Disposition: Home, Self-Care Prognosis: Fair Rehab Potential: Fair Overall status at discharge: patient is back to baseline Medical - DS: Qual - VTE Deep Vein Thrombosis/Pulmonary Embolism Present on Admission: No
[2018-11-10] MEDS: PANTOPRAZOLE 40 MG VIAL IV SCH (09:49)
[2018-11-10] MEDS: AMOXICILLIN 250 MG CAPSULE PO SCH (09:49)
[2018-11-10] MEDS: CLARITHROMYCIN 500 MG TABLET PO SCH (11:10)
== END 2018-11-10 12:20 | disposition home or self-care (01) | DRG 392 ==
LOC: ED 21:18 → ICU 11-07 00:57 → MEDSUR 11-09 10:39
PROVIDERS: ADMIT Internal Medicine; ATTEND Internal Medicine

== ENCOUNTER 2024-08-23 14:06 | Inpatient (IN) ==
[2024-08-23] MEDS: 0.9 % SODIUM CHLORIDE 1,000 ML IV ONE ×2 (15:54→17:33)
[2024-08-23 16:05] LABS: Basophils # (Auto) 0.01 K/mcL (0.00-0.30); Basophils % (Auto) 0 % (0.0-2.0); Eosinophils # (Auto) 0 K/mcL (0.00-0.70); Eosinophils % (Auto) 0 % (0.0-7.0); Hematocrit 38.9 % (40.1-51.0); Hemoglobin 12.6 g/dL (13.7-17.5); Lymphocytes # (Auto) 1.21 K/mcL (1.50-4.80); Lymphocytes % (Auto) 5.2 % (15.5-49.0); Mean Cell Volume 85.5 fL (80.0-100.0); Mean Corpuscular HGB Conc 32.4 g/dL (31.0-36.0); Monocytes # (Auto) 3.11 K/mcL (0.10-0.90); Monocytes % (Auto) 13.3 % (1.0-12.0); Neutrophils % (Auto) 80.9 % (38.0-78.0); Platelet Count 476 K/mcL (140-440); RBC 4.55 M/mcL (4.63-6.08); WBC 23.4 K/mcL (4.5-11.0)
[2024-08-23 16:21] LABS: ABG Methemoglobin 0.2 % (0.4-1.5); Total Hemoglobin 13.7 gm/Dl (13.5-16.5); VBG Base Excess 0 (-2-3); VBG HCO3 25.4 mmol/L (24.0-28.0); VBG Oxygen Saturation 60.7 % (40.0-70.0); VBG PCO2 43.6 mmHg (41.0-51.0); VBG PH 7.38 U (7.32-7.42); VBG PO2 30.7 mmHg (25.0-40.0); VBG Total CO2 26.7 mmol/L (25.0-29.0)
[2024-08-23 16:25] LABS: ALT/SGPT 16 U/L (<40); AST/SGOT 18 U/L (<40); Albumin 3.5 gm/dL (3.2-5.2); Albumin/Globulin Ratio 0.9 (1.0-2.3); Alkaline Phosphatase 98 U/L (39-117); Bilirubin,Total 0.4 mg/dL (0.1-1.0); Blood Urea Nitrogen 7 mg/dL (8-23); Calcium 8.8 mg/dL (8.6-10.4); Carbon Dioxide 23 mmol/L (22-30); Chloride 97 mmol/L (96-108); Globulin 3.9 gm/dL (2.2-3.7); Glomerular Filtration Rate 90; Glucose 128 mg/dL (70-105); Potassium 4.4 mmol/L (3.3-5.1); Sodium 134 mmol/L (133-145)
[2024-08-23] MEDS: KETOROLAC 30 MG/ML VIAL IV ONE (16:55)
[2024-08-23] MEDS: ACETAMINOPHEN 1,000 MG/100 ML BAG IV ONE (16:55)
[2024-08-23] MEDS: cefTRIAXone 2 GM in DEXTROSE 5% IN WATER 50 ML IV ONE (17:16)
[2024-08-23] MEDS: AZITHROMYCIN 500 MG in 0.9 % SODIUM CHLORIDE 250 ML IV ONE (17:33)
[2024-08-23] MEDS: NOREPINEPHRINE 250 ML IV SCH (17:47)
[2024-08-23] MEDS: 0.9 % SODIUM CHLORIDE 250 ML IV SCH (18:03)
[2024-08-23] MEDS: CEFEPIME 2 GM VIAL IV SCH (18:28)
[2024-08-23] MEDS: morphine 2 MG/ML VIAL IV ONE (18:48)
[2024-08-23] MEDS: VANCOMYCIN 1,000 MG in 0.9 % SODIUM CHLORIDE 250 ML IV ONE (19:11)
[2024-08-23] MEDS ORDERED: IPRATROPIUM/ALBUTEROL 3 ML AMPUL.NEB NEB PRN (19:59)
[2024-08-23] MEDS ORDERED: VANCOMYCIN PER PHARMACY IV SCH (19:59)
[2024-08-23] MEDS: PIPERACILLIN SODIUM/TAZOBACTAM 3.375 GM in DEXTROSE 5% IN WATER 50 ML IV ONE (21:37)
[2024-08-24] MEDS: PIPERACILLIN SODIUM/TAZOBACTAM 3.375 GM in 0.9 % SODIUM CHLORIDE 100 ML IV SCH (00:56)
[2024-08-24 07:30] LABS: Basophils # (Auto) 0.01 K/mcL (0.00-0.30); Basophils % (Auto) 0 % (0.0-2.0); Eosinophils # (Auto) 0.02 K/mcL (0.00-0.70); Eosinophils % (Auto) 0.1 % (0.0-7.0); Hematocrit 35.7 % (40.1-51.0); Hemoglobin 11.6 g/dL (13.7-17.5); Lymphocytes # (Auto) 1.74 K/mcL (1.50-4.80); Lymphocytes % (Auto) 5.7 % (15.5-49.0); Mean Cell Volume 86.2 fL (80.0-100.0); Mean Corpuscular HGB Conc 32.5 g/dL (31.0-36.0); Mean Platelet Volume 8.1 fL (8.8-12.5); Monocytes # (Auto) 2.79 K/mcL (0.10-0.90); Monocytes % (Auto) 9.2 % (1.0-12.0); Neutrophils % (Auto) 83.9 % (38.0-78.0); Platelet Count 473 K/mcL (140-440); RBC 4.14 M/mcL (4.63-6.08); Red Cell Distribution Width 13.4 % (11.5-14.5); WBC 30.4 K/mcL (4.5-11.0)
[2024-08-24 07:34] LABS: ALT/SGPT 14 U/L (<40); AST/SGOT 17 U/L (<40); Albumin 2.9 gm/dL (3.2-5.2); Albumin/Globulin Ratio 0.9 (1.0-2.3); Alkaline Phosphatase 90 U/L (39-117); Bilirubin,Direct 0.2 mg/dL (<0.3); Bilirubin,Total 0.4 mg/dL (0.1-1.0); Blood Urea Nitrogen 8 mg/dL (8-23); Carbon Dioxide 20 mmol/L (22-30); Chloride 105 mmol/L (96-108); Globulin 3.3 gm/dL (2.2-3.7); Glomerular Filtration Rate 106; Glucose 97 mg/dL (70-105); Lactate Dehydrogenase 221 U/L (135-225); Phosphorous 2.6 mg/dL (2.5-4.5); Potassium 3.7 mmol/L (3.3-5.1); Sodium 138 mmol/L (133-145); Triglycerides 48 mg/dL (<150); Uric Acid 1.6 mg/dL (2.5-8.0)
[2024-08-24 08:51] LABS: Band Neutrophils % 2 % (0-10); Lymphocytes % 8 % (15-49); Monocytes % (Manual) 10 % (1-12); Platelet Estimate INCREASED (Normal); RBC Morphology NORMAL (Normal); Segmented Neutrophils % 80 % (38-78)
[2024-08-24] MEDS: PANTOPRAZOLE 40 MG TABLET PO SCH (10:38)
[2024-08-24] MEDS: ACETAMINOPHEN 325 MG TABLET PO PRN (10:38)
[2024-08-24] MEDS: ENOXAPARIN 40 MG/0.4 ML SYRINGE SQ SCH (10:38)
[2024-08-24] MEDS: cefTRIAXone 1 GM VIAL IV SCH (10:39)
[2024-08-24] MEDS: AZITHROMYCIN 500 MG in 0.9 % SODIUM CHLORIDE 250 ML IV SCH (10:39)
[2024-08-24 12:45] LABS: Amphetamine Screen,Urine None detected; Barbiturate Screen,Urine None detected; Benzodiazepines Screen,Urine None detected; Cannabinoid Screen,Urine Suspect Positive; Cocaine Screen,Urine None detected; Fentanyl, Urine Screen None Detected; Opiate Screen,Urine None detected; Oxycodone, Urine Screen None detected; Phencyclidine Screen,Urine None detected
[2024-08-24] MEDS ORDERED: VANCOMYCIN PER PHARMACY IV SCH (16:13)
[2024-08-24] MEDS: VANCOMYCIN 1,500 MG in 0.9 % SODIUM CHLORIDE 500 ML IV ONE (17:52)
[2024-08-24] MEDS: 0.9 % SODIUM CHLORIDE 10 ML SYRINGE IV SCH (21:33)
[2024-08-25 06:30] LABS: Basophils # (Auto) 0.02 K/mcL (0.00-0.30); Basophils % (Auto) 0.2 % (0.0-2.0); Eosinophils # (Auto) 0.12 K/mcL (0.00-0.70); Eosinophils % (Auto) 0.9 % (0.0-7.0); Lymphocytes # (Auto) 1.59 K/mcL (1.50-4.80); Lymphocytes % (Auto) 12.2 % (15.5-49.0); Mean Cell Volume 85.6 fL (80.0-100.0); Mean Corpuscular HGB Conc 32.4 g/dL (31.0-36.0); Mean Platelet Volume 8.2 fL (8.8-12.5); Monocytes # (Auto) 1.22 K/mcL (0.10-0.90); Monocytes % (Auto) 9.3 % (1.0-12.0); Neutrophils % (Auto) 76.6 % (38.0-78.0); Platelet Count 533 K/mcL (140-440); RBC 4.32 M/mcL (4.63-6.08); Red Cell Distribution Width 13.3 % (11.5-14.5); WBC 13.1 K/mcL (4.5-11.0)
[2024-08-25 06:51] LABS: ALT/SGPT 14 U/L (<40); AST/SGOT 14 U/L (<40); Albumin 3.1 gm/dL (3.2-5.2); Albumin/Globulin Ratio 0.9 (1.0-2.3); Alkaline Phosphatase 95 U/L (39-117); Bilirubin,Direct < 0.2 mg/dL (0-0.3); Bilirubin,Total < 0.2 mg/dL (0.1-1.0); Blood Urea Nitrogen 6 mg/dL (8-23); Calcium 8.6 mg/dL (8.6-10.4); Carbon Dioxide 23 mmol/L (22-30); Chloride 101 mmol/L (96-108); Globulin 3.6 gm/dL (2.2-3.7); Glomerular Filtration Rate 106; Glucose 97 mg/dL (70-105); Lactate Dehydrogenase 206 U/L (135-225); Phosphorous 2.9 mg/dL (2.5-4.5); Potassium 3.7 mmol/L (3.3-5.1); Sodium 137 mmol/L (133-145); Triglycerides 140 mg/dL (<150); Uric Acid 2.1 mg/dL (2.5-8.0)
[2024-08-25] MEDS ORDERED: VANCOMYCIN 1,000 MG in 0.9 % SODIUM CHLORIDE 250 ML IV SCH (09:00)
[2024-08-26 05:46] LABS: Basophils # (Auto) 0 K/mcL (0.00-0.30); Basophils % (Auto) 0 % (0.0-2.0); Eosinophils % (Auto) 2.6 % (0.0-7.0); Hematocrit 36.9 % (40.1-51.0); Lymphocytes # (Auto) 1.72 K/mcL (1.50-4.80); Lymphocytes % (Auto) 22.7 % (15.5-49.0); Mean Cell Volume 84.6 fL (80.0-100.0); Mean Corpuscular HGB Conc 32.5 g/dL (31.0-36.0); Mean Platelet Volume 7.7 fL (8.8-12.5); Monocytes # (Auto) 0.72 K/mcL (0.10-0.90); Monocytes % (Auto) 9.5 % (1.0-12.0); Neutrophils % (Auto) 64.3 % (38.0-78.0); Platelet Count 594 K/mcL (140-440); RBC 4.36 M/mcL (4.63-6.08); Red Cell Distribution Width 13.1 % (11.5-14.5); WBC 7.6 K/mcL (4.5-11.0)
[2024-08-26 06:25] LABS: Blood Urea Nitrogen 9 mg/dL (8-23); Calcium 8.5 mg/dL (8.6-10.4); Carbon Dioxide 24 mmol/L (22-30); Chloride 102 mmol/L (96-108); Glomerular Filtration Rate 106; Glucose 132 mg/dL (70-105); Potassium 3.4 mmol/L (3.3-5.1); Sodium 138 mmol/L (133-145)
[2024-08-26] MEDS: MELATONIN 3 MG TABLET PO SCH (22:06)
[2024-08-26] MEDS: diphenhydrAMINE 25 MG CAPSULE PO PRN (23:46)
[2024-08-27 08:46] VITALS: TEMP 97.7
[2024-08-27 12:25] VITALS: O2SAT 97
== END 2024-08-27 13:00 | disposition home or self-care (01) | DRG 871 ==
LOC: ED 14:06 → ICU 19:57 → MEDSUR 08-25 11:12
PROVIDERS: ADMIT Internal Medicine; ATTEND Internal Medicine